=== PATIENT | male | born 1955 | race Caucasian/White ===

== ENCOUNTER 2019-12-06 21:42 | Inpatient (IN) | payer MEDICAID, SELFPAY ==
[~2019-12-06] VITALS: Ht 170.2 cm; Wt 52.0 kg
[2019-12-06 21:42] VITALS: BP_SYST 103
--- NOTE | 2019-12-06 21:46 | NUR ---
Patient to ER bed 7 to gown for evaluation. Side rails up.
--- NOTE | 2019-12-06 21:48 | NUR ---
Patient BIB by BLS/EMS from [facility]. C/O nausea, vomitting and abdominal pain x today. Per reported, patient had abdominal pain, nausea and vomitting, A/O,X4, abdominal pain, pain rate 10/10, nausea, right upper arm PICC line, G-tube, place patient on alarm security or surveillance monitor and pulse ox. Hx Colon cancer stage III, colostomy, G-tube, ileostomy, colon resection.
--- NOTE | 2019-12-06 21:50 | NUR ---
ER Dr. Wagner at bedside examining patient.
[2019-12-06] MEDS ORDERED: NACL 0.9% 1,000 ML IV ONE ×2 (21:53→23:45)
[2019-12-06 22:09] LABS: BASOPHILS % (AUTO) 0.1 % (0.0-2.0); EOSINOPHILS % (AUTO) 0.1 % (0.0-4.0); HEMATOCRIT 35.3 % (36-54); HEMOGLOBIN 12.1 g/dL (14.0-18.0); LYMPHOCYTES # (AUTO) 0.9 K/uL (1.0-5.5); LYMPHOCYTES % (AUTO) 7.4 % (20.5-51.5); MEAN CORPUSCULAR HEMOGLOBIN 30 pg (27-31); MEAN CORPUSCULAR HGB CONC 34 % (32-36); MEAN CORPUSCULAR VOLUME 86 fL (79.0-98.0); MONOCYTES # (AUTO) 0.1 K/uL (0.0-1.0); MONOCYTES % (AUTO) 1.2 % (1.7-9.3); NEUTROPHILS # (AUTO) 11.2 K/uL (1.8-7.7); NEUTROPHILS % (AUTO) 91.2 % (40.0-70.0); PLATELET COUNT (AUTO) 389 K/uL (130-430); RED CELL DISTRIBUTION WIDTH 16.3 % (9.0-15.0); WHITE BLOOD COUNT (AUTO) 12.3 K/uL (4.8-10.8)
--- NOTE | 2019-12-06 22:10 | NUR ---
GUERRERO CATH 16F INSERTED PER MD ORDER. PT TOLERATED PROCEDURE WELL. SCANT AMOUNT OF URINE OUTPUT ONLY.
[2019-12-06] MEDS ORDERED: ONDANSETRON HCL 4 MG/2 ML VIAL IVP ONE (22:15)
[2019-12-06] MEDS ORDERED: KETOROLAC TROMETHAMINE 30 MG VIAL IVP ONE (22:15)
[2019-12-06] MEDS ORDERED: NEU300 GT (22:23)
[2019-12-06] MEDS ORDERED: ESCI10TA GT (22:23)
[2019-12-06 22:24] LABS: CALCIUM 9.1 mg/dL (8.4-11.0); CREATININE 1.14 mg/dL (0.55-1.30); POTASSIUM 5.1 mmol/L (3.5-5.1)
[2019-12-06 22:26] LABS: INR 0.9 (0.80-1.20); PROTHROMBIN TIME 9.4 SECS (9.5-12.5)
[2019-12-06 22:28] LABS: ALBUMIN 2.5 g/dL (3.4-4.8); TOTAL BILIRUBIN 0.4 mg/dL (0.0-1.0)
[2019-12-06] MEDS ORDERED: TRAZ-250 GT (22:28)
[2019-12-06] MEDS ORDERED: SENN8.6T19 GT (22:28)
[2019-12-06] MEDS ORDERED: MIDO5TAB4 GT (22:28)
[2019-12-06] MEDS ORDERED: MIRT30TA7 GT (22:28)
[2019-12-06] MEDS ORDERED: OXYIR5 GT (22:28)
[2019-12-06] MEDS ORDERED: OXYC15TA75 GT (22:28)
[2019-12-06] MEDS ORDERED: MAGN400T10 GT (22:28)
--- NOTE | 2019-12-06 22:28 | NUR ---
Medication reconciliation completed with information provided by document/facility. Any prior medication reconciliation on file was reviewed and corrected.
--- NOTE | 2019-12-06 23:30 | NUR ---
Patient resting quietly. No acute distress noted. Vital signs within normal range.
[2019-12-06] MEDS ORDERED: MORPHINE 4 MG/ML INJ. SYRINGE IVP ONE (23:45)
[2019-12-06] MEDS ORDERED: cefTRIAXone 1 GM in D5W 50 ML IV ONE (23:45)
[2019-12-06] MEDS ORDERED: VANCOMYCIN HCL 1,000 MG in NS 250 ML IV ONE (23:45)
[2019-12-07] VITALS (11 sets, daily range): BP systolic 51–131
[2019-12-07] MEDS ORDERED: cefTRIAXone 1 GM VIAL ONE (00:11)
[2019-12-07] MEDS ORDERED: VANCOMYCIN HCL 1000 MG/VIAL IV ONE (00:27)
[2019-12-07] MEDS ORDERED: ONDANSETRON HCL 4 MG/2 ML VIAL IVP PRN (02:00)
[2019-12-07] MEDS ORDERED: HYDROmorphone 1 MG INJ. 1 MG/ML AMPUL IVP PRN (02:00)
--- NOTE | 2019-12-07 02:25 | NUR ---
Swabbed MRSA as protocol and sent to lab.
[2019-12-07] MEDS ORDERED: NACL 0.9% 1,000 ML IV ONE ×2 (02:30→08:30)
--- NOTE | 2019-12-07 02:32 | NUR ---
Patient will be admitted to care of . Admitted to Tele unit. Will go to room 110B. Belongings list completed. Complete and up to date summary report printed. SBAR report to be given at bedside with opportunity for questions.
--- NOTE | 2019-12-07 02:46 | NUR ---
Blood for labwork drawn from international exchange coordinator. Patient tolerated well.
--- NOTE | 2019-12-07 02:48 | NUR ---
X-ray at bedside.
--- NOTE | 2019-12-07 02:58 | NUR ---
ADMIT NOTE Received pt from ER to the floor with a diagnosis of sepsis, dehydration, colon CA. Admission process initiated. patient oriented to pain management, safety and call light-teach back done.
[2019-12-07] MEDS ORDERED: PIPERACILLIN/TAZOBACTAM 3.375 GM/VIAL (ZOSYN) IV ONE (03:11)
[2019-12-07] MEDS ORDERED: ACETAMINOPHEN 325 MG TABLET PO PRN (04:15)
--- NOTE | 2019-12-07 04:17 | NUR ---
SPOKE TO REGARDING ELEVATED TEMPERATURE AND HEART RATE. RECEIVED NEW ORDERS FOR TYLENOL 650 MG Q 4HRS AND COVID PCR TEST. WILL CARRY OUT.
--- NOTE | 2019-12-07 04:32 | NUR ---
CONSULTATION PAGED/CALLED Reason for Consultation: SEPSIS Person Who was Notified: ZAKI Consulting Physician: [employer] Specialist Specialty: Ordering Physician: MAI
--- NOTE | 2019-12-07 04:40 | NUR ---
TRANSFER OF CARE: REPORT GIVEN TO MCKAY OCAMPO FOR CONTINUITY OF CARE. PATIENT MOVED TO ROOM 122B, ALL BELONGINGS SENT WITH PATIENT.
--- NOTE | 2019-12-07 04:45 | NUR ---
Pt arrived to Room 122B from Room 110B via bed. Pt is fully awake and alert. KIP PICC noted and both lumens are saline locked. IVF of NS is infusing well in LAC at 25ml/hr without any signs of infiltration. LLQ Colostomy and RLQ Ileostomy bags intact with scant amount of liquid brownish stool. G Tube is in place with no residual noted. Og Cath to gravity drainage noted with scant amount of pinkish urine. Call light is with pt and bed alarm is on.
--- NOTE | 2019-12-07 05:15 | NUR ---
Novel Covid-19 Nasal swab specimen collected and will be taken to the lab.
--- NOTE | 2019-12-07 05:30 | NUR ---
GT Feeding of Jevity 1.2 was started at 40ml/hr. HOB elevated 45 degrees to prevent aspiration. Pt remains fully awake and alert. Call light is with pt and bed alarm is on.
--- NOTE | 2019-12-07 05:48 | NUR ---
Temp 100.5 Tylenol 650mg given via GT.
[2019-12-07] MEDS: MORPHINE 2 MG/ML INJ. SYRINGE IVP PRN ×3 (05:49→22:18)
--- NOTE | 2019-12-07 05:49 | NUR ---
Morphine 1mg given IV for c/o 6/10 generalized body ache. Call light is with pt and bed alarm is on.
[2019-12-07] MEDS ORDERED: PIPERACILLIN/TAZO 3.375 GM in NS 50 ML IV SCH (06:00)
--- NOTE | 2019-12-07 06:48 | NUR ---
Pt s resting quietly in bed. Temp 99.4. IVF and GTF are infusing well. Call light is with pt and bed alarm is on.
--- NOTE | 2019-12-07 07:20 | NUR ---
Opening Note patient in bed resting, respirations even and unlabored, austin catheter intact and draining by gravity, colostomy on left side, ileostomy on right side, bed locked and at low position, call light within reach, fall and aspiration precautions put in place, airborne/droplet precautions put in place, will monitor patient for any changes.
--- NOTE | 2019-12-07 08:15 | NUR ---
Low Blood pressure [id number] patient was found to be alert and oriented x4, in generalized pain, BP 58/41, HR 115, oxygen 90% on room air, IV line was found to be infiltrated, PICC line in place, initially in report it was said that the PICC line was for chemo only (patient was admitted with a PICC line), Dr. White was informed that IV access was not be able to be obtained, okay to use PICC line ordered received, chest xray confirmed placement, orders received for 1L NS Bolus, 1L was given via PICC line, patient's BP during the bolus was 60/39, HR 116, O2 97% on 2L, see vital signs on interventions for subsequent readings. Received orders to transfer to ICU.
--- NOTE | 2019-12-07 10:00 | NUR ---
Patient transferred to ICU report given to Sharonda BASHIR.
--- NOTE | 2019-12-07 10:15 | NUR ---
Assumed care of patient. Patient awake and alert. Situated to room and call light. No other complaints at this time.
[2019-12-07] MEDS: NACL 0.9% 1,000 ML IV SCH ×3 (10:30→20:48)
--- NOTE | 2019-12-07 10:34 | NUR ---
Called Dr. Fuller with a consult. Dr. Lo lion trainer,spoke with Denise from the exchange
--- NOTE | 2019-12-07 10:34 | NUR ---
Armida PEÑA rounding on patient. Made aware regarding need for DVT prophylaxis.
[2019-12-07] MEDS ORDERED: NOREPINEPHRINE 4 MG/4 ML VIAL IV ONE (10:43)
[2019-12-07] MEDS: NOREPINEPHRINE BITARTRATE 8 MG in NS 242 ML IV PRN ×2 (10:45→20:49)
[2019-12-07] MEDS ORDERED: NS 500 ML IV ONE (11:00)
--- NOTE | 2019-12-07 11:26 | NUR ---
Dr. Fuller rounding on patient. New orders made.
[2019-12-07] MEDS: ALBUMIN HUMAN 25% 50 ML IV SCH ×2 (11:46→18:16)
--- NOTE | 2019-12-07 12:30 | NUR ---
Dr. White rounding on patient. New orders made.
--- NOTE | 2019-12-07 13:00 | NUR ---
Austin Catheter Removal Patient more awake. Noted urine leaking from around austin insertion site. Rechecked for placement and no drainage noted in catheter. Patient requested austin catheter removal and states he is able to use a urinal. Removed catheter and noted tip filled with red clots. Large amount of void noted on sheets. Able to have some void in urinal about 50 ml of misty urine.
[2019-12-07] MEDS ORDERED: DIATR MEGLU/DIATRIZ SOD 30 ML SOLUTION PO ONE (13:04)
--- NOTE | 2019-12-07 14:30 | NUR ---
Endorsed plan of care to primary RN.
[2019-12-07] MEDS: PIPERACILLIN/TAZO 4.5 GM in NS 100 ML IV SCH ×2 (14:31→20:48)
--- NOTE | 2019-12-07 14:35 | NUR ---
Received patient and endorsed report.
[2019-12-07] MEDS: MORPHINE 4 MG/ML INJ. SYRINGE IVP PRN ×2 (15:23→19:55)
--- NOTE | 2019-12-07 16:48 | NUR ---
Patient off unit to CT scan accompanied by RN and tech with continuous monitoring and O2.
--- NOTE | 2019-12-07 17:20 | NUR ---
Patient return from CT scan. Situated to room and call light. Patient tolerated well.
--- NOTE | 2019-12-07 19:10 | NUR ---
OPENING NOTE SBAR REPORT RECEIVED FROM LUIS F BASHIR. CARE ASSUMED. PT LAYING IN BED. PT ANO X4. PT ON 2L NC. O2 SATURATION 98%. PT HAS RUE PICC LINE RUNNING LEVOPHED @ 0.3 MCG/KG/MIN AND NS @ 200 ML/HR. RADIAL AND PEDAL PULSES NORMAL. NO EDEMA NOTED. ABDOMEN SOFT NON DISTENDED. ILEOSTOMY AND COLOSTOMY BAG IN PLACE. PT HAS G TUBE RUNNING JEVITY @ 40 CC/HR. NO RESIDUAL NOTED. PT VOIDING IN URINAL. URINE MODE. SKIN INTACT. BED LOCKED IN LOWEST POSITION. SAFETY PRECAUTIONS IN PLACE. CALL LIGHT WITHIN REACH. WILL CONTINUE TO MONITOR.
--- NOTE | 2019-12-07 19:25 | NUR ---
Endorsed patient and gave report to NOC shift nurse. Patient in bed with side rails x 3 up. Call light with in reach.
[2019-12-07] MEDS: VANCOMYCIN HCL 750 MG/NS 250 ML IV SCH (20:48)
[2019-12-08] VITALS (24 sets, daily range): BP systolic 81–142
[2019-12-08] MEDS: ALBUMIN HUMAN 25% 50 ML IV SCH
[2019-12-08] MEDS: MORPHINE 4 MG/ML INJ. SYRINGE IVP PRN ×8 (00:01→23:46)
[2019-12-08] MEDS: NACL 0.9% 1,000 ML IV SCH ×4 (02:03→18:12)
[2019-12-08] MEDS: PIPERACILLIN/TAZO 4.5 GM in NS 100 ML IV SCH ×3 (06:21→21:42)
[2019-12-08] MEDS: NOREPINEPHRINE BITARTRATE 8 MG in NS 242 ML IV PRN (06:22)
[2019-12-08] MEDS: MORPHINE 2 MG/ML INJ. SYRINGE IVP PRN (06:23)
[2019-12-08 06:29] LABS: ALBUMIN 2.1 g/dL (3.4-4.8); CALCIUM 7.5 mg/dL (8.4-11.0); CREATININE 0.93 mg/dL (0.55-1.30); POTASSIUM 3.1 mmol/L (3.5-5.1); THYROID STIMULATING HORMONE 1.34 uIu/mL (0.36-3.74); TOTAL BILIRUBIN 0.5 mg/dL (0.0-1.0)
[2019-12-08 06:59] LABS: HEMOGLOBIN 7.1 g/dL (14.0-18.0); MEAN CORPUSCULAR HEMOGLOBIN 30 pg (27-31); MEAN CORPUSCULAR HGB CONC 34 % (32-36); MEAN CORPUSCULAR VOLUME 87 fL (79.0-98.0); PLATELET COUNT (AUTO) 167 K/uL (130-430); RED CELL DISTRIBUTION WIDTH 16.1 % (9.0-15.0); WHITE BLOOD COUNT (AUTO) 19.6 K/uL (4.8-10.8)
--- NOTE | 2019-12-08 07:09 | NUR ---
Nutrition Update Angel Scale 16 noted. Pt admitted for Sepsis, Dehydration, Colon Cancer Diet: Jevity 1.2 at 40ml/hr, FWF 10ml via GT BMI: 14.4 kg/m2 RD to follow per nutrition care standards.
--- NOTE | 2019-12-08 07:30 | NUR ---
Opening Notes Pt received from Janice BASHIR using SBAR. Pt resting in bed with eyes open, bed in lowest position with call light within reach.
--- NOTE | 2019-12-08 07:40 | NUR ---
CLOSING NOTE PT LAYING IN BED. PT SLEEPING. NO SIGNS OR SYMPTOMS OF DISTRESS NOTED. SBAR REPORT GIVEN TO ONIEL BASHIR CARE ENDORSED.
[2019-12-08 07:50] LABS: HEMATOCRIT 20.8 % (36-54)
--- NOTE | 2019-12-08 08:42 | NUR ---
MD Dr. Fuller at bedside with pt
[2019-12-08] MEDS ORDERED: oxyCODONE HCL 10 MG TAB.ER.12H PO SCH (09:00)
--- NOTE | 2019-12-08 09:39 | NUR ---
New consult for Dr. Celaya. Dr. Celaya made aware.
[2019-12-08 09:40] LABS: TOTAL IRON BIND. CAPACITY 211 ug/dL (250-450)
--- NOTE | 2019-12-08 09:40 | NUR ---
MD Dr. Celaya at bedside with pt.
[2019-12-08 11:14] LABS: BAND % (MANUAL) 32 % (0-6); BASOPHILS % (MANUAL) 0 % (0-2); EOSINOPHILS % (MANUAL) 0 % (0-7); LYMPHOCYTES % (MANUAL) 3 % (20-46); MONOCYTES % (MANUAL) 2 % (0-11); WBC MORPHOLOGY TOXIC GRANULATION
--- NOTE | 2019-12-08 11:29 | NUR ---
Called Dr. Fuller and spoke to Matt with exchange.
--- NOTE | 2019-12-08 11:36 | NUR ---
HIGH ALERT NOTE: Called Dr. Fuller back at identified within the medical roster to verify physician authenticity.
--- NOTE | 2019-12-08 12:12 | NUR ---
Ostomy Change Changed pt's ileostomy and colostomy pouches, provided skin care and sure-prep applied to sites. Pt tolerated well.
[2019-12-08] MEDS: oxyCODONE HCL 5 MG TABLET GT PRN ×2 (14:22→20:25)
--- NOTE | 2019-12-08 15:15 | NUR ---
PICC PICC line dressing changed using sterile technique, pt tolerated well.
--- NOTE | 2019-12-08 15:30 | NUR ---
CHG Pt refused CHG, able to provide partial linen change
--- NOTE | 2019-12-08 16:27 | NUR ---
Wound Evaluation: Wound Consult ordered for Low Angel Score. Patient evaluated for a low Angel score of 16. Patient was awake, alert, oriented and received in a Breanna Bed with an Isoflex KATHERYN mattress with low air loss therapy initiated. Patient needs minimal assist to turn in bed. Skin assessment: 1. Sacral area: Scar tissue and blanchable red erythema from IAD, present on admission. No odor, no drainage. Surrounding tissue is erythematous. Patient is thin and bony with fragile tissue on Sacral area. Recommend: Cleanse involved area with mild soap and water. Pat dry. Apply Hydraguard moisture barrier cream to involved area. Cover site with Sacral foam dressing. Perform site care daily, and as needed for dressing soiling or dislodgment. 2. Left Heel: Blanchable redness. 3. Right Heel: Blanchable redness. Recommend: Elevate, off-load and float bilateral heels with one pillow lengthwise under each extremity at all times. Recommend: Encourage and assist patient as needed with repositioning side to side only every 2 hours with pillow support. Do not allow patient to lie flat on his back. Elevate, off-load and float bilateral heels with one pillow lengthwise under each extremity at all times. Offload pressure areas with pillows for pressure re-distribution. Perform skin care and monitor skin integrity Q shift. Hydraguard moisture barrier cream on moisture susceptible areas QID and PRN for soiling. Maintain patient on a low air-loss mattress.
--- NOTE | 2019-12-08 16:57 | NUR ---
BT INITIATION: Consent signed per pt agreeing to administration of blood. Blood has been type and crossmatched. Blood sent from blood bank. Information on unit of blood checked against patient wristband at bedside by two nurses. All information matches. Patient or responsible republican informed of potential complications associated with blood transfusion. Informed of possible transfusion reaction symptoms. Aware of need to notify nurse at once of itching, shortness of breath, flushing, feeling of impending doom, or other symptoms not previously present. Vital signs taken within 5 minutes prior to initiation of transfusion. RN will remain with patient for first 15 minutes of transfusion at which time vital signs will be re-assessed.
--- NOTE | 2019-12-08 19:25 | NUR ---
Opening Note Received report from AM nurse using SBAR approach.
--- NOTE | 2019-12-08 20:00 | NUR ---
Blood Transfusion Completed. Patient shows no signs or symptoms of adverse reactions. Patient tolerated well. Vital signs: BP: 126/57. Pulse 60, Respirations 15, Temperature 98.4.
[2019-12-08] MEDS: VANCOMYCIN HCL 750 MG/NS 250 ML IV SCH (20:49)
--- NOTE | 2019-12-08 22:28 | NUR ---
Blood Transfusion Complete Patient shows no signs or symptoms of adverse reactions. Patient tolerated well. Vital Signs: Blood pressure 139/66, Respirations 14, Pulse 60, Temperature 98.1.
--- NOTE | 2019-12-08 23:15 | NUR ---
PAGED DR. GARCIA FOR ORDERS DIALED: [phone] SPOKE TO: HARSHA
--- NOTE | 2019-12-08 23:20 | NUR ---
Patient complained of heart burn. Paged Dr. Stephens for orders.
--- NOTE | 2019-12-08 23:25 | NUR ---
MD LUISA Bowman is covering for Dr. Stephens. New orders received for patient's heart burn.
[2019-12-08] MEDS ORDERED: MAG-AL HYDROX/SIMETH 30 ML UDC PO ONE (23:30)
[2019-12-08] MEDS: PANTOPRAZOLE SODIUM 40 MG TAB PO SCH (23:45)
[2019-12-09] VITALS (24 sets, daily range): BP systolic 89–149
[2019-12-09] MEDS ORDERED: PANTOPRAZOLE SODIUM 40 MG TAB ONE (00:04)
[2019-12-09] MEDS: NOREPINEPHRINE BITARTRATE 8 MG in NS 242 ML IV PRN (02:10)
[2019-12-09] MEDS: oxyCODONE HCL 5 MG TABLET GT PRN ×3 (02:21→20:06)
[2019-12-09] MEDS: NACL 0.9% 1,000 ML IV SCH ×4 (02:27→23:01)
[2019-12-09] MEDS: MORPHINE 4 MG/ML INJ. SYRINGE IVP PRN ×8 (02:40→23:51)
--- NOTE | 2019-12-09 03:00 | NUR ---
MD Rounds Dr. White at bedside. New orders received.
--- NOTE | 2019-12-09 04:00 | NUR ---
Urine Culture Collected urine culture and sent to lab.
--- NOTE | 2019-12-09 04:19 | NUR ---
PAGE FOR CONSULT KOFI BRYANT REASON FOR CONSULT: HYDROBNEPHROSIS ORDERING PHYSICIAN: SATYA LEIGH DIALED: [phone] SPOKE TO: NO EXCHANGED,LEFT VOICEMAIL,NOTIFIED RN
[2019-12-09] MEDS: PIPERACILLIN/TAZO 4.5 GM in NS 100 ML IV SCH ×3 (06:00→21:35)
[2019-12-09 06:16] LABS: BASOPHILS % (AUTO) 0.1 % (0.0-2.0); EOSINOPHILS # (AUTO) 0.1 K/uL (0.0-0.4); EOSINOPHILS % (AUTO) 0.8 % (0.0-4.0); HEMATOCRIT 33.8 % (36-54); HEMOGLOBIN 11.5 g/dL (14.0-18.0); LYMPHOCYTES # (AUTO) 0.7 K/uL (1.0-5.5); LYMPHOCYTES % (AUTO) 5.1 % (20.5-51.5); MEAN CORPUSCULAR HEMOGLOBIN 29 pg (27-31); MEAN CORPUSCULAR HGB CONC 34 % (32-36); MEAN CORPUSCULAR VOLUME 86 fL (79.0-98.0); MONOCYTES # (AUTO) 0.3 K/uL (0.0-1.0); MONOCYTES % (AUTO) 1.9 % (1.7-9.3); NEUTROPHILS # (AUTO) 12.3 K/uL (1.8-7.7); NEUTROPHILS % (AUTO) 92.1 % (40.0-70.0); PLATELET COUNT (AUTO) 143 K/uL (130-430); RED BLOOD CELL COUNT(AUTO) 3.94 MIL/uL (4.2-6.2); RED CELL DISTRIBUTION WIDTH 15.7 % (9.0-15.0); WHITE BLOOD COUNT (AUTO) 13.4 K/uL (4.8-10.8)
[2019-12-09 06:39] LABS: ALBUMIN 1.9 g/dL (3.4-4.8); CALCIUM 7.7 mg/dL (8.4-11.0); CREATININE 0.74 mg/dL (0.55-1.30); TOTAL BILIRUBIN 0.5 mg/dL (0.0-1.0)
[2019-12-09 06:51] LABS: PROTHROMBIN TIME 10.2 SECS (9.5-12.5)
--- NOTE | 2019-12-09 07:15 | NUR ---
Closing Note Endorsed report to AM nurse using SBAR approach.
--- NOTE | 2019-12-09 07:27 | NUR ---
Opening Note Received plan of care via sbar from endorsing RN.
[2019-12-09 08:18] LABS: POTASSIUM 2.9 mmol/L (3.5-5.1)
--- NOTE | 2019-12-09 08:30 | NUR ---
Dr. Fuller at bedside. Discussed patient update. Provided MD with critical K 2.[address] orders.
[2019-12-09] MEDS: PANTOPRAZOLE SODIUM 40 MG TAB PO SCH (08:32)
[2019-12-09] MEDS: MUPIROCIN 2% TOPICAL OINTMENT 22 GM TP SCH ×3 (08:33→21:06)
[2019-12-09] MEDS ORDERED: POTASSIUM CHLORIDE 20 MEQ/PKT PACKET PO ONE (08:45)
--- NOTE | 2019-12-09 08:45 | NUR ---
Dr. Bueno at bedside. Provided patient update. Per MD he wants records from prior visit from [facility] for OP notes for ureteral stent placement. Also Radiology for bilateral nephrostomy tubes and removal of ureteral stent.
--- NOTE | 2019-12-09 09:37 | NUR ---
Ganesh at requested to have Dr. Bueno contact Dr. Corrales to discuss request. Paged Dr. Bueno.
--- NOTE | 2019-12-09 09:50 | NUR ---
Dr. Celaya at bedside. Provided patient update. No new orders.
[2019-12-09 09:51] LABS: BILIRUBIN,URINE NEGATIVE (NEGATIVE); BLOOD, URINE 3+ (NEGATIVE); CLARITY/URINE SL CLOUDY (CLEAR); COLOR,URINE YELLOW (YELLOW); GLUCOSE,URINE NEGATIVE (NEGATIVE); KETONES,URINE NEGATIVE (NEGATIVE); LEUKOCYTE ESTERASE ,URINE 2+ (NEGATIVE); NITRITE, URINE POSITIVE (NEGATIVE); PROTEIN URINE 2+ (NEGATIVE); UROBILINOGEN,URINE 0.2 (0.2-1.0)
[2019-12-09 10:11] LABS: BACTERIA,URINE FEW /HPF (None Seen); RBC,URINE 20-50 /HPF (0-3)
[2019-12-09 10:12] LABS: WBC,URINE >100 /HPF (0-3)
--- NOTE | 2019-12-09 10:40 | NUR ---
Spoke to patient about consent for the nephrostomy and moderate sedation. Patient advised that he does not want to make that decision without speaking to his dad. Patient requested I contact his father prior to any consent. Spoke to Ganesh at radiology who confirmed that the procedure will be a Left nephrostomy tube placement and not bilateral as Dr. Bueno had mentioned earlier. Both Dr. Bueno and Dr. Corrales had spoken. Called patient dad x 2 Yazan [place] [phone]. Left message.
--- NOTE | 2019-12-09 12:35 | NUR ---
Discussed CHG with patient. Patient advised that he is uncomfortable and dealing with generalized pain and abd pain. Refused CHG. Discussed the possibility of trying to do the CHG bath at a later time. Patient will reconsider then.
--- NOTE | 2019-12-09 17:00 | NUR ---
Discussed with patient regarding CHG bath. Patient refused a third time.
--- NOTE | 2019-12-09 19:14 | NUR ---
Closing Note Provided plan of care via sbar to receiving RN.
--- NOTE | 2019-12-09 19:28 | NUR ---
Opening Note: Report rc'vd from RN via SBAR report, all cares assumed. patient in bed with all safety precautions in place. Bed in lowest locked position, call light within reach.
--- NOTE | 2019-12-09 19:41 | NUR ---
Dietitian Recommendations *Jevity 1.2 at 50ml/hr (goal rate) with Prosource TID and 200ml free water flush Q6h -Provides: 1620 calories, 112g of protein, and 1768ml of fluids daily. -Meets: 81% and 111% of lower end of calorie and protein estimated needs, respectively. Please see Nutrition F/U for further details. LT, RD
[2019-12-09] MEDS: VANCOMYCIN HCL 750 MG/NS 250 ML IV SCH (20:06)
--- NOTE | 2019-12-09 20:07 | NUR ---
PAIN: PRN Oxycodone 10mg given for 8/10 pain, generalized body pain.
--- NOTE | 2019-12-09 20:44 | NUR ---
PAIN: Oxycodone ineffective, 4mg IVP Morphine given for 8/10 pain. Will re-assess patient, patient states "it hurts everywhere". Assisted with reposition and offered fluids PO.
--- NOTE | 2019-12-09 23:13 | NUR ---
Nsg Rounds: Patient calm lying in bed with HOB in optimal placement, denies any needs at this time. Fluids offered, new NS bag hung running at 150 ml/hr, Tube feeding replaced with new tubing. Patient denies any questions at this time. Provided patient with education on pain medications, patient lacked attentiveness to discussion. Will continue to educate throughout shift.
--- NOTE | 2019-12-09 23:45 | NUR ---
Pain: 4mg IVP Morphine given for 8/10 pain. Will re-assess patient, patient verbalized pain is constant and generalized.
[2019-12-10] VITALS (22 sets, daily range): BP systolic 91–112
--- NOTE | 2019-12-10 | NUR ---
Morphine: PRN not effective in treating patients pain. Offered fluids, urinal and assisted with repositioning.
--- NOTE | 2019-12-10 01:15 | NUR ---
Nsg Rounds: Patient awake in bed, patient verbalized pain remains constant. Educated on next dose of pain medication, patient verbalized understanding. Bed in lowest locked position all safety precautions in place. Offered fluids and urinal to patient.
--- NOTE | 2019-12-10 02:45 | NUR ---
Pain: 4mg IVP Morphine given for 8/10 pain. Will re-assess patient, patient verbalized pain is constant and generalized.
[2019-12-10] MEDS: MORPHINE 4 MG/ML INJ. SYRINGE IVP PRN ×7 (02:49→22:12)
[2019-12-10] MEDS: oxyCODONE HCL 5 MG TABLET GT PRN (04:02)
--- NOTE | 2019-12-10 04:10 | NUR ---
PAIN: PRN Oxycodone 10mg given for 8/10 pain, generalized body pain.
[2019-12-10] MEDS: NACL 0.9% 1,000 ML IV SCH ×3 (05:09→18:14)
[2019-12-10] MEDS: PIPERACILLIN/TAZO 4.5 GM in NS 100 ML IV SCH ×3 (05:10→22:12)
[2019-12-10 05:26] LABS: BASOPHILS % (AUTO) 0.5 % (0.0-2.0); EOSINOPHILS # (AUTO) 0.1 K/uL (0.0-0.4); EOSINOPHILS % (AUTO) 2.2 % (0.0-4.0); HEMATOCRIT 29.8 % (36-54); HEMOGLOBIN 10.2 g/dL (14.0-18.0); LYMPHOCYTES # (AUTO) 0.8 K/uL (1.0-5.5); LYMPHOCYTES % (AUTO) 13.2 % (20.5-51.5); MEAN CORPUSCULAR HEMOGLOBIN 29 pg (27-31); MEAN CORPUSCULAR HGB CONC 34 % (32-36); MEAN CORPUSCULAR VOLUME 85 fL (79.0-98.0); MONOCYTES # (AUTO) 0.3 K/uL (0.0-1.0); MONOCYTES % (AUTO) 4.8 % (1.7-9.3); NEUTROPHILS # (AUTO) 4.5 K/uL (1.8-7.7); NEUTROPHILS % (AUTO) 79.3 % (40.0-70.0); PLATELET COUNT (AUTO) 112 K/uL (130-430); RED BLOOD CELL COUNT(AUTO) 3.49 MIL/uL (4.2-6.2); RED CELL DISTRIBUTION WIDTH 16.1 % (9.0-15.0); WHITE BLOOD COUNT (AUTO) 5.7 K/uL (4.8-10.8)
[2019-12-10 05:49] LABS: ALBUMIN 1.5 g/dL (3.4-4.8); CALCIUM 7.2 mg/dL (8.4-11.0); CREATININE 0.59 mg/dL (0.55-1.30); TOTAL BILIRUBIN 0.5 mg/dL (0.0-1.0)
[2019-12-10 05:50] LABS: POTASSIUM 2.8 mmol/L (3.5-5.1)
--- NOTE | 2019-12-10 05:55 | NUR ---
Called: Called Dr. Mathews r/t K+ 2.8, new orders received as follows 60 MeQ K+ PO Once, 20 MeQ K-Saud Once, order read back and confirmed.
--- NOTE | 2019-12-10 05:57 | NUR ---
HIGH ALERT NOTE: Called Dr. Mathews back identified within the medical roster to verify physician authenticity. New orders received, r/t K+ 2.8, new orders received as follows 60 MeQ K+ PO Once, 20 MeQ K-Saud Once, order read back and confirmed.
[2019-12-10] MEDS ORDERED: KCL 20 mEq in 100 mL (PREMIX) 100 ML IV ONE ×2 (06:00→06:51)
[2019-12-10] MEDS ORDERED: POTASSIUM CHLORIDE 20 MEQ TAB.PRT.SR PO ONE ×2 (06:00→08:00)
[2019-12-10] MEDS: POTASSIUM CHLORIDE 20 MEQ/PKT PACKET PO ONE ×2 (06:48→07:30)
[2019-12-10] MEDS ORDERED: POTASSIUM CHLORIDE 20 MEQ/PKT PACKET ONE (06:51)
--- NOTE | 2019-12-10 06:58 | NUR ---
Closing Note Endorsed report to AM nurse using SBAR approach.
--- NOTE | 2019-12-10 08:00 | NUR ---
Dr. Fuller at bedside. Reported Potassium and provided patient update. MD to place orders. I did discuss that the potassium was supplemented via 20 meq IV and 60 meq PO.
--- NOTE | 2019-12-10 08:30 | NUR ---
Dr. Simms at bedside. Provide patient update and discussed nephrostomy. Dr. Simms had some reservation on the procedure and will discuss with Dr. Bueno.
--- NOTE | 2019-12-10 08:45 | NUR ---
Dr. Bueno at bedside. Provide patient update and discuss Dr. Simms's request to discuss the nephrostomy. Dr. Bueno will contact Dr. Simms. No new orders.
[2019-12-10] MEDS: PANTOPRAZOLE SODIUM 40 MG TAB PO SCH (09:10)
[2019-12-10] MEDS: MUPIROCIN 2% TOPICAL OINTMENT 22 GM TP SCH ×2 (10:15→20:47)
--- NOTE | 2019-12-10 17:30 | NUR ---
Dr. Cote at bedside. Provided patient update. Per MD, we will not proceed with the nephrostomy. Patient okay to transfer in the AM if stable. MD agreed to discontinue morphine and give Dilaudid 1 mg for moderate pain and 2 mg for severe pain via IVP Q4 PRN.
[2019-12-10] MEDS ORDERED: NALOXONE HCL 0.4 MG/ML AMP (NARCAN) IVP PRN (18:45)
--- NOTE | 2019-12-10 19:21 | NUR ---
Closing Note Provided plan of care via sbar to receiving RN.
[2019-12-10] MEDS: HYDROmorphone 2 MG/ML VIAL IVP PRN ×2 (19:37→23:36)
--- NOTE | 2019-12-10 20:00 | NUR ---
AWAKE, ALERT, C/O ABDOMINAL PAIN, 10/10, DILAUDID 2 MG IVP GIVEN EARLIER. ON ROOM AIR. POX 98%. BREATH SOUNDS ESSENTIALLY CLEAR. BOWEL SOUNDS (+). ILEOSTOMY AND COLOSTOMY NOTED. GT FEEDING WITH JEVITY 1.2 AT 40 CC/HR. RESIDUAL CHECK 0. PULSES PALPABLE. SKIN W/D. COLOR SATISFACTORY. HOB UP TO COMFORT. USES URINAL TO VOID. OCCASIONAL PACED BEATS. KIP PICC LINE DRSG D/I. SIDE RAILS UP. CALL LIGHTS WITHIN REACH.
[2019-12-10] MEDS: VANCOMYCIN HCL 750 MG/NS 250 ML IV SCH (20:42)
[2019-12-11] VITALS (16 sets, daily range): BP systolic 99–116
[2019-12-11] MEDS: NACL 0.9% 1,000 ML IV SCH ×4 (01:07→20:32)
[2019-12-11] MEDS: MORPHINE 4 MG/ML INJ. SYRINGE IVP PRN ×5 (02:09→22:03)
[2019-12-11] MEDS: PIPERACILLIN/TAZO 4.5 GM in NS 100 ML IV SCH ×3 (07:24→22:03)
--- NOTE | 2019-12-11 07:30 | NUR ---
Opening Note Received bedside report from endorsing RN for continuation of care. Received patient awake and resting in bed, complaining of pain. No signs or symptoms of acute distress noted. Bed locked in lowest position, bed alarm on, and call light within reach. Fall and safety precautions in place.
[2019-12-11] MEDS: HYDROmorphone 2 MG/ML VIAL IVP PRN ×4 (08:12→20:41)
[2019-12-11] MEDS: PANTOPRAZOLE SODIUM 40 MG TAB PO SCH (08:12)
[2019-12-11] MEDS: MUPIROCIN 2% TOPICAL OINTMENT 22 GM TP SCH ×2 (08:13→20:42)
--- NOTE | 2019-12-11 09:16 | NUR ---
Dr. Fuller at bedside examining patient. New orders received.
[2019-12-11] MEDS: HYDROmorphone 1 MG INJ. 1 MG/ML AMPUL IVP PRN ×4 (10:11→23:47)
--- NOTE | 2019-12-11 10:48 | NUR ---
Dr. Celaya in to see patient. No new orders.
--- NOTE | 2019-12-11 16:05 | NUR ---
Family Update Spoke with patient's mother on the phone regarding patient status and plan of care. All questions answered and education provided.
--- NOTE | 2019-12-11 18:25 | NUR ---
Spoke with Dr. Aba White regarding urine culture results, made aware.
--- NOTE | 2019-12-11 19:02 | NUR ---
Closing Note Endorsed bedside report to oncoming RN using SBAR approach for continuation of care.
--- NOTE | 2019-12-11 19:14 | NUR ---
Closing Note Endorsed bedside report to oncoming RN using SBAR approach for continuation of care.
--- NOTE | 2019-12-11 19:30 | NUR ---
Opening note: Report received from day RN. Assuming care now.
[2019-12-11] MEDS: VANCOMYCIN HCL 750 MG/NS 250 ML IV SCH (20:40)
[2019-12-11] MEDS: oxyCODONE HCL 5 MG TABLET GT PRN (20:41)
[2019-12-12] VITALS (15 sets, daily range): BP systolic 100–118
[2019-12-12] MEDS: HYDROmorphone 2 MG/ML VIAL IVP PRN ×4 (00:41→13:48)
[2019-12-12] MEDS: MORPHINE 4 MG/ML INJ. SYRINGE IVP PRN ×5 (02:04→20:23)
[2019-12-12] MEDS: NACL 0.9% 1,000 ML IV SCH ×2 (04:05→09:43)
[2019-12-12] MEDS: HYDROmorphone 1 MG INJ. 1 MG/ML AMPUL IVP PRN ×5 (04:05→22:33)
[2019-12-12 05:58] LABS: BASOPHILS # (AUTO) 0.1 K/uL (0.0-0.2); BASOPHILS % (AUTO) 1.8 % (0.0-2.0); CALCIUM 7.1 mg/dL (8.4-11.0); CREATININE 0.51 mg/dL (0.55-1.30); EOSINOPHILS # (AUTO) 0.2 K/uL (0.0-0.4); EOSINOPHILS % (AUTO) 8.3 % (0.0-4.0); HEMATOCRIT 30.8 % (36-54); HEMOGLOBIN 10.5 g/dL (14.0-18.0); LYMPHOCYTES # (AUTO) 0.7 K/uL (1.0-5.5); LYMPHOCYTES % (AUTO) 24.6 % (20.5-51.5); MEAN CORPUSCULAR HEMOGLOBIN 29 pg (27-31); MEAN CORPUSCULAR HGB CONC 34 % (32-36); MEAN CORPUSCULAR VOLUME 86 fL (79.0-98.0); MONOCYTES # (AUTO) 0.5 K/uL (0.0-1.0); MONOCYTES % (AUTO) 17.4 % (1.7-9.3); NEUTROPHILS # (AUTO) 1.4 K/uL (1.8-7.7); NEUTROPHILS % (AUTO) 47.9 % (40.0-70.0); PLATELET COUNT (AUTO) 128 K/uL (130-430); POTASSIUM 3.3 mmol/L (3.5-5.1); RED BLOOD CELL COUNT(AUTO) 3.61 MIL/uL (4.2-6.2); RED CELL DISTRIBUTION WIDTH 15.7 % (9.0-15.0)
[2019-12-12] MEDS: PIPERACILLIN/TAZO 4.5 GM in NS 100 ML IV SCH ×3 (06:49→22:10)
--- NOTE | 2019-12-12 08:00 | NUR ---
Dr. Resendiz in to see patient. No new orders.
[2019-12-12] MEDS: MUPIROCIN 2% TOPICAL OINTMENT 22 GM TP SCH ×2 (08:29→20:33)
[2019-12-12] MEDS: PANTOPRAZOLE SODIUM 40 MG TAB PO SCH (08:29)
--- NOTE | 2019-12-12 08:42 | NUR ---
Dr. Bueno at bedside examining patient. No new orders.
[2019-12-12] MEDS ORDERED: POTASSIUM CHLORIDE 20 MEQ/PKT PACKET PO ONE (08:45)
--- NOTE | 2019-12-12 08:45 | NUR ---
Dr. Fuller at bedside examining patient. New orders received.
--- NOTE | 2019-12-12 12:10 | NUR ---
Family Update Spoke with patient's mother Vivien on the phone regarding patient status and plan of care. All questions answered and education provided.
--- NOTE | 2019-12-12 14:15 | NUR ---
Endorsement of Care Endorsed bedside report to [facility] RN using SBAR approach for continuation of care.
--- NOTE | 2019-12-12 14:23 | NUR ---
assumed care, pt in bed, awake, watching tv. no distress noted. call light in reach. Enc to call for help as needed. will monitor.
--- NOTE | 2019-12-12 15:07 | NUR ---
Notes Complain of abdominal pain 10/10pain level.medicated with morphine as ordered.patient is watching tv.no distress noted.
--- NOTE | 2019-12-12 17:09 | NUR ---
Nutrition F/U RD reviewed pt's current EMR record including diet Hx, physician notes, nursing notes, pertinent labs/meds/procedures, care trends, and care activity. Admission Dx: Sepsis, Dehydration, Colon Cancer PMHx includes Metastatic Colon Cancer St4, G-tube, and Colostomy per physician notes. Per MD Note 12/08: anemia, PNA, CAD, colostomy and ileostomy, ureteral stent placement, and severe malnutrition SARS-CoV2 Ag (Rapid) Negative 12/05 SARS-CoV2 (PCR) Negative 12/06 Current Diet Order/Nutrition Support: Jevity 1.2 at 50 ml/hr, Free Water Flush: 10 ml via GT x4 days Subjective Info: RD visit was deferred while pt was in isolation in ICU to conserve PPE. Pt's primary RN reported that pt has been tolerating TF well, no residuals, and w/ some some stool output via ileostomy. Possible plans for nephrostomy tube placement per RN report. Pt would benefit from protein supplements to better meet nutritional needs. Pertinent Medications: Reviewed Pertinent Labs: Na 137 WNL (improved), K 3.3 L BUN 8 WNL (improved), CRE 0.51 L, eGFR 176 WNL (improved), BG 135 H, ALB 1.5 L Skin Integrity Comment: Angel Score: 13 Per EMR, blanchable redness to the sacrum. Current % PO N/A, pt on EN Estimated Energy Expenditure (kcals/day) 2009-2345kcal/day (30-35kcal/kg based on IBW for sepsis, cancer) Estimated Protein Required (g/day) 101-134g/day (1.5-2g/kg based on IBW for sepsis, cancer) Estimated Fluid Required (l/day) 1.7-2.0L/day for maintenance Problem/Etiology/Signs/Symptoms Malnutrition r/t disease progression associated with St 4 colon cancer AEB BMI 14.4kg/m2. *ongoing Inadequate enteral infusion r/t increased metabolic demands AEB EN meeting <75% of estimated needs *ongoing Expected Outcomes/Goals Monitor tolerance to nutrition support w/ goal of pt meeting at least 50-75% of estimated nutritional needs, labs trending WNL, normal GI function, and skin integrity/wt maintenance Dietitian Recommendations * Recommend Jevity 1.2 at 5 0ml/hr (goal rate) with Prosource TID, Free Water Flush: 200 ml Q6h via GT Provides: 1620 kcal/day, 112 gm protein/day, and 1768 ml free water/day Meets: 81% and 111% of lower end of caloric and protein estimated needs, respectively Follow Up High Risk: F/U in 2-3 days
--- NOTE | 2019-12-12 17:16 | NUR ---
Dietitian Recommendations * Recommend Jevity 1.2 at 5 0ml/hr (goal rate) with Prosource TID, Free Water Flush: 200 ml Q6h via GT Provides: 1620 kcal/day, 112 gm protein/day, and 1768 ml free water/day Meets: 81% and 111% of lower end of caloric and protein estimated needs, respectively LP, RD Please refer to Nutrition F/U for details.
--- NOTE | 2019-12-12 18:10 | NUR ---
Notes Patient is resting with eyes closed. Breathing even and unlabored. No acute distress noted.
--- NOTE | 2019-12-12 19:30 | NUR ---
INITIAL NOTES PATIENT IS STABLE AND LAYING IN BED. NO S/S OF RESPIRATORY DISTRESS NOTED. CALL LIGHT IN REACH. PATIENT SUCCESSFULLY DEMONSTRATES USAGE OF CALL LIGHT. BED IS LOCKED, ALARMED, AND AT THE LOWEST POSITION. FALL, SAFETY, ASPIRATION, CONTACT, AND RESPIRATORY PRECAUTIONS WILL BE IN PLACE THROUGHOUT THE SHIFT. PLAN OF CARE IS DISCUSSED WITH PATIENT.
[2019-12-12] MEDS: VANCOMYCIN HCL 750 MG/NS 250 ML IV SCH (20:32)
--- NOTE | 2019-12-12 21:30 | NUR ---
EMPTIED ILEOSTOMY AND COLOSTOMY AT THIS TIME. PT TOLERATED WELL.
--- NOTE | 2019-12-12 23:30 | NUR ---
PATIENT IS STABLE AND WATCHING TV IN BED. NO S/S OF RESPIRATORY DISTRESS NOTED. CALL LIGHT IN REACH.
[2019-12-13] VITALS: BP_SYST 117
[2019-12-13] MEDS: NACL 0.9% 1,000 ML IV SCH ×2 (00:40→05:22)
[2019-12-13] MEDS: MORPHINE 4 MG/ML INJ. SYRINGE IVP PRN ×3 (00:40→08:15)
--- NOTE | 2019-12-13 01:30 | NUR ---
PATIENT IS STABLE AND SLEEPING IN BED. NO S/S OF RESPIRATORY DISTRESS NOTED. CALL LIGHT IN REACH.
[2019-12-13] MEDS: HYDROmorphone 1 MG INJ. 1 MG/ML AMPUL IVP PRN (03:18)
--- NOTE | 2019-12-13 03:30 | NUR ---
PATIENT IS WATCHING TV AND STABLE. NO S/S OF RESPIRATORY DISTRESS NOTED. CALL LIGHT IN REACH.
--- NOTE | 2019-12-13 04:37 | NUR ---
PT REQUEST PAIN MEDICATION AT THIS TIME. PRN MEDICATION GIVEN. PATIENT TOLERATED WELL. NO S/S OF RESPIRATORY DISTRESS NOTED. CALL LIGHT IN REACH.
[2019-12-13] MEDS: PIPERACILLIN/TAZO 4.5 GM in NS 100 ML IV SCH ×3 (05:23→22:27)
--- NOTE | 2019-12-13 06:19 | NUR ---
CLOSING NOTES PATIENT IS STABLE AND LAYING IN BED. NO S/S OF RESPIRATORY DISTRESS NOTED. CALL LIGHT IN REACH. BED IS LOCKED, ALARMED, AND AT THE LOWEST POSITION. FALL, SAFETY, ASPIRATION, CONTACT AND RESPIRATORY PRECAUTIONS HAVE BEEN IN PLACE THROUGHOUT THE SHIFT. WILL CONTINUE TO MONITOR UNTIL SBAR REPORT IS ENDORSED TO AM NURSE BY BEDSIDE.
[2019-12-13 06:41] LABS: EOSINOPHILS # (AUTO) 0.2 K/uL (0.0-0.4); EOSINOPHILS % (AUTO) 5.6 % (0.0-4.0); HEMATOCRIT 31.9 % (36-54); LYMPHOCYTES # (AUTO) 0.7 K/uL (1.0-5.5); LYMPHOCYTES % (AUTO) 20.5 % (20.5-51.5); MEAN CORPUSCULAR HEMOGLOBIN 29 pg (27-31); MEAN CORPUSCULAR HGB CONC 35 % (32-36); MEAN CORPUSCULAR VOLUME 85 fL (79.0-98.0); MONOCYTES # (AUTO) 0.6 K/uL (0.0-1.0); MONOCYTES % (AUTO) 19.1 % (1.7-9.3); NEUTROPHILS # (AUTO) 1.7 K/uL (1.8-7.7); NEUTROPHILS % (AUTO) 53.8 % (40.0-70.0); PLATELET COUNT (AUTO) 150 K/uL (130-430); RED BLOOD CELL COUNT(AUTO) 3.74 MIL/uL (4.2-6.2); RED CELL DISTRIBUTION WIDTH 15.4 % (9.0-15.0); WHITE BLOOD COUNT (AUTO) 3.2 K/uL (4.8-10.8)
[2019-12-13 07:08] LABS: CALCIUM 7.3 mg/dL (8.4-11.0); CREATININE 0.58 mg/dL (0.55-1.30); POTASSIUM 3.4 mmol/L (3.5-5.1)
[2019-12-13 08:00] VITALS: BP_SYST 121
[2019-12-13] MEDS: PANTOPRAZOLE SODIUM 40 MG TAB PO SCH (08:15)
--- NOTE | 2019-12-13 08:15 | NUR ---
Opening Notes/Morphine Patient is awake, alert and oriented x4. No resp distress noted. Breathing is even and unlabored. Pt is agitated. Per patient, "I dont want to live like this anymore. I just want to . I give up." Pt is c/o "constant pain", 11/05 in stomach area. Patient was given Morphine 4 mg IVP, tolerated well. PICC LINE on KIP, double lumen, flushing well, blood return noted. NS @ 150 cc/hr, infusing well at this time. All needs met. Safety and fall precautions in place. Bed in lowest position, alarm on, locked. Will continue to monitor. Addendum: 12/13/19 at 1937 by Leeanna Martinez RN Will re-evaluate patient throughout shift. Will endorse to PM nurse for further evaluation
[2019-12-13] MEDS: MUPIROCIN 2% TOPICAL OINTMENT 22 GM TP SCH ×2 (08:34→20:13)
[2019-12-13] MEDS ORDERED: POTASSIUM CHLORIDE 20 MEQ/PKT PACKET PO ONE (10:00)
[2019-12-13] MEDS: TEMAZEPAM 7.5 MG CAPSULE PO PRN ×2 (10:07→22:27)
--- NOTE | 2019-12-13 10:15 | NUR ---
Restoril 7.5 mg x insomnia/AGITATION Per patient, "I cant sleep at all. I need a sleeping pill." Obtained new orders from Dr. Cote. Restoril 7.5 mg Q12H PRN. Pt tolerated medication well. Pt continues to be agitated. Per patient, "This pill better work and you better not be tricking me into taking another medication." Nurse educated pt that the pill is for his insomnia." Will continue to monitor.
--- NOTE | 2019-12-13 10:29 | NUR ---
Notes Patient is laying in bed, asking for pain medication. Nurse educated pt that his pain med is not due yet. No resp distress noted. Breathing is even and unlabored. Will continue to monitor.
[2019-12-13] MEDS: HYDROmorphone 2 MG/ML VIAL IVP PRN ×3 (11:24→20:12)
--- NOTE | 2019-12-13 11:25 | NUR ---
Pain Patient is c/o 9/10 stomach pain, requesting pain medication. Administered Dilaudid 2 mg IVP, tolerated well. Will continue to monitor.
--- NOTE | 2019-12-13 11:41 | NUR ---
DC FLUIDS, TKO S/w Dr. Cote about pts bilateral feet swelling, obtained new orders to stop IVF and keep TKO. Noted and carried out. Educated pt to elevate lower extremities. Aware and agreed. Will continue to monitor.
[2019-12-13 12:00] VITALS: BP_SYST 115
--- NOTE | 2019-12-13 12:25 | NUR ---
Notes Patient is sleeping in bed at this time. No resp distress noted. Breathing is even and unlabored. No signs of pain at this time. Will continue to monitor.
--- NOTE | 2019-12-13 14:25 | NUR ---
Notes/Pain Patient is awake, alert and oriented x4. No resp distress. Pt is c/o 9/10 stomach pain, requesting pain medication. Administered Dilaudid 2 mg IVP, tolerated well. Collected a urine sample and sent to lab. Pt reports pain upon urination as well. Urine is dark with foul odor. All needs met. Will continue to monitor.
[2019-12-13 15:56] LABS: BILIRUBIN,URINE NEGATIVE (NEGATIVE); BLOOD, URINE 3+ (NEGATIVE); CLARITY/URINE SL CLOUDY (CLEAR); COLOR,URINE YELLOW (YELLOW); GLUCOSE,URINE NEGATIVE (NEGATIVE); KETONES,URINE NEGATIVE (NEGATIVE); LEUKOCYTE ESTERASE ,URINE 2+ (NEGATIVE); NITRITE, URINE NEGATIVE (NEGATIVE); PROTEIN URINE 1+ (NEGATIVE); UROBILINOGEN,URINE 0.2 (0.2-1.0)
[2019-12-13 16:14] LABS: BACTERIA,URINE MODERATE /HPF (None Seen); RBC,URINE 50-80 /HPF (0-3); WBC,URINE 50-80 /HPF (0-3)
[2019-12-13 16:20] VITALS: BP_SYST 108
--- NOTE | 2019-12-13 16:33 | NUR ---
Notes/MOVED TO ROOM 118A Moved pt to room 118A. No resp distress noted. Breathing is even and unlabored. Pt is c/o stomach pain, 12/05, requesting pain meds. Nurse educated pt that pain med is not due yet. Pt is agitated. Elevated both lower extremities and hung new tube feeding. All needs met. Will continue to monitor.
--- NOTE | 2019-12-13 16:45 | NUR ---
Notes Patient is awake, alert and oriented x4. Patient is agitated. Patient is c/o constant pain, 9/10, requesting pain medication. Nurse educated that pain med wasnt due at this time. Patient is sleeping at this time. No resp distress. Will continue to monitor.
[2019-12-13] MEDS: oxyCODONE HCL 5 MG TABLET GT PRN (17:16)
--- NOTE | 2019-12-13 17:16 | NUR ---
Pain Patient is c/o stomach pain, 9/10 constant pain. Administered Oxycodone 10 mg via GTUBE, tolerated well. Will continue to monitor.
--- NOTE | 2019-12-13 18:31 | NUR ---
Closing Notes Patient is asleep at this time. No resp distress noted. Breathing is even and unlabored. NO signs of pain at this time. PICC line on KIP intact, dressing clean and dry, TKO. GTUBE site intact, tube feed: Jevity 1.2 @ 40 cc/hr, infusing well at this time. Colostomy and ileosotomy intact at this time. Pt remains on contact isolation at this time. All needs met. Safety and fall precautions in place. Bed in lowest position, alarm on, locked. Will continue to monitor.
--- NOTE | 2019-12-13 19:30 | NUR ---
SUICIDE RISK ASSESSMENT PER AM NURSE, PATIENT VERBALIZED "I JUST WANT TO . I GIVE UP" IN THE MORNING. UPON ASSESSMENT AT THIS TIME, PATIENT VERBALIZES "NO I DID NOT MEAN WHAT I SAID, I JUST SAID I WANTED TO BECAUSE I WAS FRUSTRATED. OF COURSE I WANT TO LIVE". WHEN ASSESSED USING THE SUICIDE SEVERITY RISK SCALE, PATIENT DID NOT MEET ANY CRITERIA FOR ANY MORE PRECAUTIONS NECESSARY FOR SUICIDE PREVENTION. WILL CONTINUE TO MONITOR PATIENT CLOSELY FOR CHANGES IN MOOD/BEHAVIOR.
[2019-12-13 19:45] VITALS: BP_SYST 121
--- NOTE | 2019-12-13 19:45 | NUR ---
INITIAL NOTE AT INITIAL ASSESSMENT, PATIENT IS RESTING IN BED, STABLE, NO SIGNS OF RESPIRATORY DISTRESS. PATIENT VERBALIZES PAIN, PRN MEDICATION FOR PAIN WILL BE GIVEN. PLAN OF CARE FOR THE EVENING IS COMMUNICATED WITH THE PATIENT. PATIENT DEMONSTRATES CORRECT USAGE OF CALL LIGHT AT THIS TIME. BED IS LOCKED, ALARMED, AND AT THE LOWEST LEVEL. FALL SAFETY EDUCATION PROVIDED. FALL, SAFETY, ISOLATION, AND RESPIRATORY PRECAUTIONS WILL BE TAKEN THROUGHOUT THE SHIFT.
[2019-12-13] MEDS: VANCOMYCIN HCL 750 MG/NS 250 ML IV SCH (20:12)
--- NOTE | 2019-12-13 20:20 | NUR ---
PAIN NOTE PATIENT IS COMPLAINING OF PAIN, PRN MEDICATION IS GIVEN AT THIS TIME FOR PATIENTS PAIN COMPLAINT PER MD ORDERS. WILL REASSESS IF PRN MEDICATION GIVEN WAS EFFECTIVE. CALL LIGHT PLACED WITHIN REACH. BED IS LOCKED, ALARMED, AND AT THE LOWEST LEVEL.
--- NOTE | 2019-12-13 22:10 | NUR ---
MED PASS NOTE SCHEDULED MEDICATIONS GIVEN AT THIS TIME, PATIENT TOLERATED WELL. CALL LIGHT IS PLACED WITHIN REACH. BED IS LOCKED, ALARMED, AND AT THE LOWEST LEVEL.
[2019-12-14] VITALS: BP_SYST 121
--- NOTE | 2019-12-14 00:10 | NUR ---
HYGIENE CARE NOTE HYGIENE CARE IS PROVIDED AT THIS TIME, FRESH LINENS PROVIDED, AND PATIENT IS REPOSITIONED FOR COMFORT. PATIENT TOLERATED WELL. CALL LIGHT PLACED WITHIN REACH. BED IS LOCKED, ALARMED, AND AT THE LOWEST LEVEL.
[2019-12-14] MEDS: HYDROmorphone 2 MG/ML VIAL IVP PRN ×5 (00:52→22:04)
--- NOTE | 2019-12-14 01:30 | NUR ---
Andrey LOZANO. ROUNDS Lou LOZANO IS AT BEDSIDE MAKING ROUNDS, HE HAS GIVEN NEW ORDERS FOR HEPARIN AND SCDS, ORDERS READ BACK, VERIFIED, AND ENTERED FOR PHARMACY APPROVAL.
--- NOTE | 2019-12-14 03:30 | NUR ---
NOTE PATIENT IS SLEEPING, STABLE, NO SIGNS OF RESPIRATORY DISTRESS. CALL LIGHT IS WITHIN REACH. BED IS LOCKED, ALARMED, AND AT THE LOWEST LEVEL.
[2019-12-14] MEDS: PIPERACILLIN/TAZO 4.5 GM in NS 100 ML IV SCH ×3 (05:13→22:02)
--- NOTE | 2019-12-14 05:30 | NUR ---
HYGIENE CARE REFUSED HYGIENE CARE REFUSES HYGIENE CARE AT THIS TIME DESPITE EDUCATION EFFORTS. WILL CONTINUE TO ENCOURAGE. PATIENT IS REPOSITIONED FOR COMFORT. PATIENT TOLERATED WELL. CALL LIGHT PLACED WITHIN REACH. BED IS LOCKED, ALARMED, AND AT THE LOWEST LEVEL.
--- NOTE | 2019-12-14 06:30 | NUR ---
CLOSING NOTE PATIENT SLEPT WELL THROUGHOUT THE SHIFT, NO SHORTNESS OF BREATH NOTED. AT THIS TIME, PATIENT IS RESTING IN BED, STABLE, NO SIGNS OF RESPIRATORY DISTRESS. CALL LIGHT IS WITHIN REACH. BED IS LOCKED, ALARMED, AND AT THE LOWEST LEVEL. FALL, SAFETY, ISOLATION, ASPIRATION, AND RESPIRATORY PRECAUTIONS HAVE BEEN TAKEN THROUGHOUT THE SHIFT. WILL CONTINUE TO MONITOR UNTIL SHIFT REPORT IS GIVEN AT BEDSIDE TO AM NURSE.
--- NOTE | 2019-12-14 07:15 | NUR ---
Opening Note patient in bed resting, a/o x 4, no signs of distress noted, IV line is patent and infusing well, colostomy and ileostomy on abdomen intact, G Tube intact, safety measures put in place, bed locked and at low position, call light within reach, fall and aspiration precautions put in place, will monitor patient for any changes.
[2019-12-14 07:40] VITALS: BP_SYST 130
[2019-12-14] MEDS: MUPIROCIN 2% TOPICAL OINTMENT 22 GM TP SCH (09:00)
[2019-12-14] MEDS: LINEZOLID 300 ML IV SCH ×2 (09:36→20:34)
[2019-12-14] MEDS: POTASSIUM CHLORIDE 20 MEQ/PKT PACKET PO SCH (09:36)
[2019-12-14] MEDS: PANTOPRAZOLE SODIUM 40 MG TAB PO SCH (09:36)
[2019-12-14] MEDS: HEPARIN SODIUM,PORCINE 5,000 UNITS/ML VIAL SUBCUT SCH ×2 (09:38→20:36)
--- NOTE | 2019-12-14 09:39 | NUR ---
RN Rounds/Medications patient in bed resting, alert and awake, administered medications orderer per MD, patient tolerated well, no other needs at this time.
[2019-12-14] MEDS: TEMAZEPAM 7.5 MG CAPSULE PO PRN ×2 (11:13→23:42)
--- NOTE | 2019-12-14 11:45 | NUR ---
MD Rounds Dr. Fuller at bedside assessing patient, will follow up with new orders.
[2019-12-14 12:00] VITALS: BP_SYST 106
[2019-12-14] MEDS: MORPHINE 4 MG/ML INJ. SYRINGE IVP PRN (13:18)
--- NOTE | 2019-12-14 14:01 | NUR ---
RN Rounds patient in bed resting, awake and alert, no signs of distress noted, changed bedsheets for patient, administered medication ordered per MD, patient tolerated well, no other needs at this time, safety measures maintained.
[2019-12-14] MEDS: oxyCODONE HCL 5 MG TABLET GT PRN ×2 (14:59→19:06)
--- NOTE | 2019-12-14 15:44 | NUR ---
SUNSHINE Planning: received hospice eval order today. I called pt's father Jarett who does not want to made decision until speaking with dr. Cote. LISANDRA Kathi will notify the pt about the hospice eval. Per Jarett, stated he received a call from [facility] that the pt has appointment for the nephrostomy tube surgery at [facility] on Sunday. He will call back with the [facility] info: oncology and out patient surgery appointment. Per Jarett, the pt was supposed to have CM removal at [facility] but was not done, instead the pt had nephrostomy tube placement and continuing with chemo therapy treatments. Then he was transferred to [facility] with planning to xfer back and forth to [facility] for chemo therapy. Addendum: 12/14/19 at 1620 by Bull Llamas RN >> Per Jarett , he will agree with any decision the patient made: hospice vs transfer to [facility] for IR nephrostomy tube placement. Sunitha is cm at [facility] Satellite clinic/Liza /dr. Pop oncologist # [phone]. >> Per LISANDRA Armenta: new order to transfer to higher level of care for IR Urology for nephrostome tube placement . The pt agreed to have it done now. Addendum: 12/14/19 at 1655 by Bull Llamas RN >> Faxed the transfer request to [facility] attn Margot # [phone], tel # [phone]. Addendum: 12/15/19 at 1401 by Bull Llamas RN >> F/U with [facility]: the case is not accepted , the facility is not contracted with pt's insurance. In addition, dr. Manriquez/urologist spoke with dr. Cote for POC. Dr Cote would try to have the IR at [facility].
[2019-12-14 16:00] VITALS: BP_SYST 99
--- NOTE | 2019-12-14 17:30 | NUR ---
RN Rounds/Dressing placed patient in bed resting, no signs of distress noted, patient incontinent, perineal care done, foam dressing placed on sacrum area and z-guard cream placed, repositioned patient, patient tolerated well, no other needs at this time, safety measures maintained.
--- NOTE | 2019-12-14 19:30 | NUR ---
Opening Note patient in bed resting, a/o x 4, no signs of distress noted, IV line is patent and infusing well, colostomy and ileostomy on abdomen intact, G Tube intact, safety measures put in place, bed locked and at low position, call light within reach, fall and aspiration precautions put in place, will monitor patient for any changes, endorsed patient care to oncoming warehouse worker 2nd shift nurse. Addendum: 12/14/19 at 1938 by Nallely Alex RN Closing Note
[2019-12-14 20:30] VITALS: BP_SYST 97
--- NOTE | 2019-12-14 20:36 | NUR ---
MED PASS PATIENT DUE MEDICATIONS GIVEN. PATIENT ASKING FOR PAIN SHOT EXPLAINED ITS NOT TIME YET AND THAT HIS BP IS ON THE LOW SIDE 97/57. WILL HAVE TO RECHECK IT LATER BEFORE WE CAN GIVE PAIN SHOT.
--- NOTE | 2019-12-14 21:20 | NUR ---
BP/PAIN PATIENT BLOOD PRESSURE RECHECKED 98/57. INFORMED PATIENT HE CANNOT HAVE IT RIGHT NOW DUE TO HIS LOW BP. INFORMED PATIENT WILL RECHECK BP AGAIN LATER. PATIENT INSISTING ON GETTING IT AND WHEN TOLD ITS NOT SAFE TO GIVE RIGHT NOW HE BECOMES AGITATED AND YELL TO THIS NURSE SAYING " YOU'RE A BITCH". LEFT PATIENT ROOM AND TOLD PATIENT WILL COME BACK TO RECHECK BP AGAIN.
--- NOTE | 2019-12-14 22:04 | NUR ---
PAIN MGT PATIENT MEDICATED WITH DILAUDID FOR C/O ABDOMINAL PAIN 12/05. BP 103/60. CALL LIGHT WITH IN REACH.
[2019-12-15] VITALS: BP_SYST 105
[2019-12-15] MEDS: HYDROmorphone 2 MG/ML VIAL IVP PRN ×2 (02:45→06:51)
--- NOTE | 2019-12-15 02:45 | NUR ---
PAIN MGT PATIENT MEDICATED WITH DILAUDID FOR C/O ABDOMINAL PAIN 12/05. BP 102/61. CALL LIGHT WITH IN REACH.
--- NOTE | 2019-12-15 03:00 | NUR ---
PICC DRESSING KIP PICC LINE DRESSING CHANGED.
[2019-12-15] MEDS: PIPERACILLIN/TAZO 4.5 GM in NS 100 ML IV SCH ×3 (05:42→21:31)
--- NOTE | 2019-12-15 05:45 | NUR ---
AM CARE PATIENT REFUSED AM CARE.
--- NOTE | 2019-12-15 07:23 | NUR ---
Opening Note patient in bed resting, no signs of distress noted, respirations even and unlabored, safety measures put in place, bed locked and at low position, call light within reach, fall and aspiration precautions put in place, will monitor patient for any changes.
[2019-12-15 08:30] VITALS: BP_SYST 105
[2019-12-15] MEDS: PANTOPRAZOLE SODIUM 40 MG TAB PO SCH (08:33)
[2019-12-15] MEDS: POTASSIUM CHLORIDE 20 MEQ/PKT PACKET PO SCH (08:33)
[2019-12-15] MEDS: LINEZOLID 300 ML IV SCH ×2 (08:33→20:30)
[2019-12-15] MEDS: HEPARIN SODIUM,PORCINE 5,000 UNITS/ML VIAL SUBCUT SCH ×2 (08:34→20:31)
[2019-12-15] MEDS: MORPHINE 4 MG/ML INJ. SYRINGE IVP PRN ×4 (08:59→23:20)
--- NOTE | 2019-12-15 08:59 | NUR ---
RN Rounds/Medications patient in bed in stable condition, respirations even and unlabored, administered medications ordered per MD, patient tolerated well, safety measures maintained.
--- NOTE | 2019-12-15 10:28 | NUR ---
RN Rounds/Dressing change patient in bed resting, incontinence care done, foam dressing changed on sacral area, z-guard cream applied, patient tolerated well, no other needs at this time, safety measures maintained.
[2019-12-15] MEDS: oxyCODONE HCL 5 MG TABLET GT PRN (11:53)
--- NOTE | 2019-12-15 12:00 | NUR ---
RN Rounds patient in bed laying down, respirations even and unlabored, administered medication as ordered per MD, patient tolerated well, safety precautions maintained.
[2019-12-15 12:16] VITALS: BP_SYST 101
--- NOTE | 2019-12-15 13:23 | NUR ---
Nutrition F/U RD reviewed pt's current EMR record including diet Hx, physician notes, nursing notes, pertinent labs/meds/procedures, care trends, and care activity. Admission Dx: Sepsis, Dehydration, Colon Cancer PMHx includes Metastatic Colon Cancer St4 w/ distant metastasis, G-tube, and Colostomy per physician notes. Per MD Note 12/08: anemia, PNA, CAD, colostomy and ileostomy, ureteral stent placement, and severe malnutrition SARS-CoV2 Ag (Rapid) Negative 12/05 SARS-CoV2 (PCR) Negative 12/06 Current Diet Order/Nutrition Support: Clear liquid diet x 1 day Subjective Info: Pt is in isolation room and RD visit has been deferred d/t lack of PPE. RD s/w pt's primary RN Nallely who reported that EN is still infusing and it has been endorsed by nocturnal RN that pt now has a clear liquid diet order as well. Per EMR review, diet order is only active for clear liquid diet and EN order has been completed/discontinued. RD advised RN to clarify w/ MD re: nutrition support vs diet order vs both. Pertinent Medications: Heparin, KCl Packet, Protonix, Piperacillin/tazobactam Pertinent Labs: Na 138 WNL (improved), K 3.4 L, BUN 7L, CRE 0.58 L, BG 133 H Skin Integrity Comment: Angel Score: 15. Please see Dozer Operator note 12/07. No pressure injury Current % PO Poor on Clear liquid Estimated Energy Expenditure (kcals/day) 2009-2345kcal/day (30-35kcal/kg based on IBW for sepsis, cancer) Estimated Protein Required (g/day) 101-134g/day (1.5-2g/kg based on IBW for sepsis, cancer) Estimated Fluid Required (l/day) 1.7-2.0L/day for maintenance Problem/Etiology/Signs/Symptoms Malnutrition r/t disease progression associated with St 4 colon cancer AEB BMI 14.4kg/m2. *ongoing Inadequate enteral infusion r/t increased metabolic demands AEB EN meeting <75% of estimated needs *ongoing Expected Outcomes/Goals Monitor tolerance to nutrition support w/ goal of pt meeting at least 50-75% of estimated nutritional needs, labs trending WNL, normal GI function, and skin integrity/wt maintenance Dietitian Recommendations * Continue: Clear liquid diet as ordered by MD. * Recommend continue: Jevity 1.2 at 5 0ml/hr (goal rate) with Prosource TID, Free Water Flush: 200 ml Q6h via GT Provides: 1620 kcal/day, 112 gm protein/day, and 1768 ml free water/day Meets: 81% and 111% of lower end of caloric and protein estimated needs, respectively Follow Up High Risk: F/U in 2-3 days
--- NOTE | 2019-12-15 13:29 | NUR ---
Dietitian Recommendations * Continue: Clear liquid diet as ordered by MD. * Recommend continue: Jevity 1.2 at 5 0ml/hr (goal rate) with Prosource TID, Free Water Flush: 200 ml Q6h via GT Provides: 1620 kcal/day, 112 gm protein/day, and 1768 ml free water/day Meets: 81% and 111% of lower end of caloric and protein estimated needs, respectively Please see Nutrition F/U note for details. TUNDE, RD
--- NOTE | 2019-12-15 14:20 | NUR ---
MD Rounds Dr. Cote assessed patient at bedside.
--- NOTE | 2019-12-15 16:04 | NUR ---
DC Planning: Called Urology dept /[facility] # [phone] s/w MCKAY Ferreira : The pt has schedule for Cystoscopy and stent removal with dr Ibarra on 01/01. I asked to expedite the case and to reschedule pt for tomorrow, since the pt is in pain and needed to get the procedure done stu. Per Jhon, the md wants to see pt on the schedule days and unable to reschedule. I asked for inpatient transfer, Jhon stated pt must be dc from [facility] and go directly to the [facility] ER. >> Consulted with dr. Cote, the pt is great pain and need IR at [facility] stu. S/W LISANDRA Longo and RN Nallely, have not f/u with the radiologist yet. >> Consulted with dr. Bueno, stated pt can be dc to snf and f/u with [facility] as scheduled. >> paged dr. Montenegro to assist with the POC on the IR procedure-- dir Pallavi /austyn made aware.
[2019-12-15 16:15] VITALS: BP_SYST 100
--- NOTE | 2019-12-15 16:17 | NUR ---
IMPORTANCE CONTACT NUMBERS: [facility] Urology dept/dr. Ibarra 's office # [phone]. Appointment for Cystoscopy and stent removal on 01/02/20. Sunitha/ [facility], tel [phone]. address: [address] [place] [address]. I LVM yesterday and today/ no call back. Please f/u with Sunitha for her help with transfer pt to [facility] if unable to do the IR at [facility]. Denies post acute # [phone]. Per LISANDRA Mcdonough, the pt has schedule for chemo tx today and PCP phone f/u at [facility] which he is missing them.
--- NOTE | 2019-12-15 17:46 | NUR ---
RN Rounds patient awake watching TV, respirations even and unlabored, no signs of distress noted, safety measures maintained.
--- NOTE | 2019-12-15 19:30 | NUR ---
Opening notes Received report. Patient is resting in bed, no signs of distress noted. Breathing even and unlabored on room air. PICC line patent and intact, no signs of infiltration noted. G-tube patent and intact, infusing feeding. Patient has both colostomy and ileostomy. Emptied 125 ml of liquid from both bags. Total of 250 ml. No other needs. Call light with the patient. Safety precautions in place.
--- NOTE | 2019-12-15 19:40 | NUR ---
Closing Note patient in bed resting, a/o x 4, no signs of distress noted, IV line is patent and infusing well, colostomy and ileostomy on abdomen intact, G Tube intact, safety measures put in place, bed locked and at low position, call light within reach, fall and aspiration precautions put in place, will monitor patient for any changes, endorsed patient care to oncoming restaurant shift supervisor nurse.
[2019-12-15 20:00] VITALS: BP_SYST 108
--- NOTE | 2019-12-15 20:00 | NUR ---
Dr. Bueno rounds Seen and examined patient. informed RN that nephrostomy catheters will not be placed here and patient can be discharged back to SNF from his standpoint. Patient will follow up as outpatient for nephrostomy.
--- NOTE | 2019-12-15 20:30 | NUR ---
Medications given. Educated the action and side effects of Heparin. Patient verbalized understanding and tolerated well. Patient requesting sleeping pill. Will administer at later time as patient has previously received morphine. Patient verbalized understanding. No other needs. Call light with the patient. Safety precautions in place.
[2019-12-15] MEDS: TEMAZEPAM 7.5 MG CAPSULE PO PRN (21:31)
--- NOTE | 2019-12-15 21:35 | NUR ---
Sleeping pill given via g-tube. No residual noted. Educated the action and side effects of medications. Patient verbalized understanding and tolerated well. No other needs. Call light with the patient. Safety precautions in place.
--- NOTE | 2019-12-15 23:20 | NUR ---
Pain Patient complaing of abd pain. PRN morphine given. Educated the action and side effects of medication. Patient verbalized understanding and tolerated well. No other needs at this time. Call light with the patient. Safety precautions in place.
[2019-12-16] VITALS: BP_SYST 111
--- NOTE | 2019-12-16 01:05 | NUR ---
RN rounds Patient resting in bed, no signs of distress noted. Breathing even and unlabored on room air. Feeding infusing well. No needs. Call light with the patient. Safety precautions in place.
[2019-12-16] MEDS: MORPHINE 4 MG/ML INJ. SYRINGE IVP PRN ×5 (03:22→20:19)
--- NOTE | 2019-12-16 03:32 | NUR ---
Pain Patient complains of abdominal pain. PRN morphine given. Educated the action and side effects of medication. Patient verbalized understanding and tolerated well. No other needs at this time. Call light with the patient. Safety precautions in place.
[2019-12-16 05:46] LABS: EOSINOPHILS # (AUTO) 0.2 K/uL (0.0-0.4); HEMOGLOBIN 11.2 g/dL (14.0-18.0); LYMPHOCYTES # (AUTO) 0.9 K/uL (1.0-5.5); MONOCYTES # (AUTO) 0.8 K/uL (0.0-1.0)
[2019-12-16 05:52] LABS: BASOPHILS % (AUTO) 0.7 % (0.0-2.0); EOSINOPHILS % (AUTO) 4.8 % (0.0-4.0); HEMATOCRIT 32.6 % (36-54); LYMPHOCYTES % (AUTO) 23.4 % (20.5-51.5); MEAN CORPUSCULAR HEMOGLOBIN 29 pg (27-31); MEAN CORPUSCULAR HGB CONC 35 % (32-36); MEAN CORPUSCULAR VOLUME 85 fL (79.0-98.0); MONOCYTES % (AUTO) 20.1 % (1.7-9.3); NEUTROPHILS # (AUTO) 1.9 K/uL (1.8-7.7); PLATELET COUNT (AUTO) 302 K/uL (130-430); RED BLOOD CELL COUNT(AUTO) 3.85 MIL/uL (4.2-6.2); RED CELL DISTRIBUTION WIDTH 16.1 % (9.0-15.0); WHITE BLOOD COUNT (AUTO) 3.8 K/uL (4.8-10.8)
[2019-12-16 05:57] LABS: ALBUMIN 1.4 g/dL (3.4-4.8); CALCIUM 7.9 mg/dL (8.4-11.0); CREATININE 0.61 mg/dL (0.55-1.30); POTASSIUM 3.3 mmol/L (3.5-5.1); TOTAL BILIRUBIN 0.4 mg/dL (0.0-1.0)
[2019-12-16] MEDS: PIPERACILLIN/TAZO 4.5 GM in NS 100 ML IV SCH ×3 (06:53→22:39)
--- NOTE | 2019-12-16 07:00 | NUR ---
Closing notes Patient resting in bed, no signs of distress noted. Breathing even and unlabored on room air. Patient requesting pain medications, SBP at this time remains in the 90s. Informed patient pain medications cannot be given with a low blood pressure. Patient is upset. All needs met throughout the shift. Call light with the patient. Safety precautions in place. Will endorse care to day shift RN.
[2019-12-16 07:48] VITALS: BP_SYST 108
--- NOTE | 2019-12-16 08:00 | NUR ---
Note Pt resting in bed watching television. GT intact and infusing GT feedings at this time. No SOB/resp distress or pain/discomfort noted at this time. Pt's tele unit intact and attached at this time. KIP PICC intact and patent infusing IVF's well. No needs noted at this time. Call light within reach.
[2019-12-16] MEDS: LINEZOLID 300 ML IV SCH ×2 (08:37→20:19)
[2019-12-16] MEDS: POTASSIUM CHLORIDE 20 MEQ/PKT PACKET PO SCH (08:37)
[2019-12-16] MEDS: PANTOPRAZOLE SODIUM 40 MG TAB PO SCH (08:37)
[2019-12-16] MEDS: HEPARIN SODIUM,PORCINE 5,000 UNITS/ML VIAL SUBCUT SCH ×2 (09:07→20:18)
--- NOTE | 2019-12-16 10:45 | NUR ---
Note Pt resting in bed - denies any needs at this time. Dr Fuller on the floor at 0750am to assess pt. Dr Bueno on the floor at 0815am to assess pt. No new orders given at this time. [facility] RN called at 0930am to speak to pt at this time. Pt watching television and GT feedings infusing well. Call light within reach.
[2019-12-16 12:14] VITALS: BP_SYST 113
--- NOTE | 2019-12-16 14:15 | NUR ---
Note Pt states pain tolerable at this time. Pt given hygiene care frequently throughout the shift. Pt denies any needs at this time. Pt's right ileostomy and left colostomy intact and draining. Call light within reach.
[2019-12-16 15:59] VITALS: BP_SYST 110
--- NOTE | 2019-12-16 16:45 | NUR ---
Note Jaymie PEÑA (Urology Clinic) at [facility] called at 1620 stating that pt has an appt on 12/22/19 at 5.30am for stent placement. At the tower that has big "H" on it on 2nd floor (inpatient lobby) [phone]. Tomorrow Norma PEÑA will be available for questions.
--- NOTE | 2019-12-16 18:40 | NUR ---
Note Pt resting in bed and denies any needs at this time. No SOB/resp distress or pain/discomfort was noted at this time. Tele unit attached and intact all shift. Pt was checked on q1' and PRN all shift for needs and care. KIP PICC intact and patent infusing IVF's. GT intact and patent infusing feedings. Left colostomy and right ileostomy intact and draining well all shift. Pt was maintained with safety precautions all shift Call light within reach. .
--- NOTE | 2019-12-16 19:30 | NUR ---
Opening notes Received report. Patient is resting in bed, no signs of distress noted. Breathing even and unlabored on room air. PICC line patent and intact, no signs of infiltration noted. G-tube patent and intact, infusing feeding. Patient has both colostomy and ileostomy. Patient requesting pain medication, will administer. No other needs. Call light with the patient. Safety precautions in place.
--- NOTE | 2019-12-16 20:20 | NUR ---
Medications given. Educated the action and side effects of Morphine. Patient verbalized understanding and tolerated well. Encouraged patient to reposition self to prevent bed sores. Patient verbalized understanding. No other needs. Call light with the patient. Safety precautions in place.
[2019-12-16 20:22] VITALS: BP_SYST 102
--- NOTE | 2019-12-16 22:30 | NUR ---
RN rounds Patient resting in bed watching TV, no signs of distress noted. Breathing even and unlabored on room air. Feeding infusing well. No needs. Call light with the patient. Safety precautions in place.
[2019-12-17] VITALS: BP_SYST 107
[2019-12-17] MEDS: MORPHINE 4 MG/ML INJ. SYRINGE IVP PRN ×6 (00:25→21:14)
[2019-12-17] MEDS: TEMAZEPAM 7.5 MG CAPSULE PO PRN (01:46)
--- NOTE | 2019-12-17 04:26 | NUR ---
Pain Patient complains of abd pain. PRN morphine given. Educated the action and side effects of medication. Patient verbalized understanding and tolerated well. No other needs at this time. Call light with the patient. Safety precautions in place.
[2019-12-17] MEDS: PIPERACILLIN/TAZO 4.5 GM in NS 100 ML IV SCH ×3 (06:03→21:20)
--- NOTE | 2019-12-17 06:57 | NUR ---
Closing notes Patient resting in bed, no signs of distress noted. Breathing even and unlabored on room air. PICC line patent and intact, no signs of infiltration noted. All needs met throughout the shift. Call light with the patient. Safety precautions in place. Will endorse care to day shift RN.
[2019-12-17 07:55] VITALS: BP_SYST 103
--- NOTE | 2019-12-17 08:00 | NUR ---
Note Pt resting in bed, denies any SOB/resp distress or pain/discomfort noted at this time. KIP PICC intact and patent. 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 GT feedings infusing well - site intact and benign at this time. Pt watching television, tele unit intact and attached at this time. Call light within reach.
--- NOTE | 2019-12-17 08:15 | NUR ---
Note Dr Bueno on the floor to assess pt and check labs/tests at this time.
[2019-12-17] MEDS: PANTOPRAZOLE SODIUM 40 MG TAB PO SCH (08:27)
[2019-12-17] MEDS: POTASSIUM CHLORIDE 20 MEQ/PKT PACKET PO SCH (08:27)
[2019-12-17] MEDS: LINEZOLID 300 ML IV SCH ×2 (08:27→21:19)
[2019-12-17] MEDS: HEPARIN SODIUM,PORCINE 5,000 UNITS/ML VIAL SUBCUT SCH ×2 (08:36→21:26)
--- NOTE | 2019-12-17 11:45 | NUR ---
Note Pt resting in bed watching television at this time. No needs noted at this time. Call light within reach.
[2019-12-17 12:26] VITALS: BP_SYST 111
--- NOTE | 2019-12-17 13:22 | NUR ---
Spoke w/ patient- he is agreeable to returning to [facility] and f/u at [facility] out patient on 12/21 for outpt stent placement, when he is medically stable. I called [facility] [phone]-and spoke to Linh, social work job titles. She is aware of appt 12/21 at [facility] and she will arrange transportation for patient to appt. Pt is scheduled for Chemotherapy Dec 29 2019 at [facility] and she will arrange for pt to be transported for the chemotherapy treatment on that day.
--- NOTE | 2019-12-17 13:45 | NUR ---
Note Pt resting in bed - no needs noted at this time. Pt watching television and denies any needs at this time. Abdominal pain tolerable at this time. Call light within reach.
--- NOTE | 2019-12-17 14:20 | NUR ---
Note Dr Cote on the floor to assess pt. Orders written and carried out.
--- NOTE | 2019-12-17 14:54 | NUR ---
Spoke w/ Sunitha at [facility]-[phone]-verified appts at [facility] and schedule for chemotherapy for patient. Spoke w/ patient concerning F/U at [facility] for chemo and urology appts-he agreed to plan for F/u at [facility]
[2019-12-17 15:43] LABS: BASOPHILS % (AUTO) 1.2 % (0.0-2.0); EOSINOPHILS # (AUTO) 0.1 K/uL (0.0-0.4); EOSINOPHILS % (AUTO) 3.6 % (0.0-4.0); HEMATOCRIT 32.2 % (36-54); HEMOGLOBIN 11.1 g/dL (14.0-18.0); LYMPHOCYTES # (AUTO) 0.9 K/uL (1.0-5.5); LYMPHOCYTES % (AUTO) 23.8 % (20.5-51.5); MEAN CORPUSCULAR HEMOGLOBIN 29 pg (27-31); MEAN CORPUSCULAR HGB CONC 34 % (32-36); MEAN CORPUSCULAR VOLUME 85 fL (79.0-98.0); MONOCYTES # (AUTO) 0.7 K/uL (0.0-1.0); MONOCYTES % (AUTO) 16.5 % (1.7-9.3); NEUTROPHILS # (AUTO) 2.2 K/uL (1.8-7.7); NEUTROPHILS % (AUTO) 54.9 % (40.0-70.0); PLATELET COUNT (AUTO) 388 K/uL (130-430); RED BLOOD CELL COUNT(AUTO) 3.78 MIL/uL (4.2-6.2); RED CELL DISTRIBUTION WIDTH 16.7 % (9.0-15.0); WHITE BLOOD COUNT (AUTO) 3.9 K/uL (4.8-10.8)
[2019-12-17 16:01] LABS: ALBUMIN 1.4 g/dL (3.4-4.8); CALCIUM 7.7 mg/dL (8.4-11.0); CREATININE 0.66 mg/dL (0.55-1.30); POTASSIUM 3.8 mmol/L (3.5-5.1); TOTAL BILIRUBIN 0.4 mg/dL (0.0-1.0)
[2019-12-17 16:16] VITALS: BP_SYST 100
--- NOTE | 2019-12-17 18:20 | NUR ---
Note Pt resting in bed watching television. Pt's abdominal pain tolerable at this time. No SOB/resp distress or pain/discomfort noted at this time. Right ileostomy and left colostomy intact and draining well all shift. Tele unit attached and intact all shift. KIP PICC intact and patent all shift. Pt was checked on q1' and PRN all shift for needs and care. Pt was maintained with safety and isolation precautions all shift. No needs noted at this time. Call light within reach. Pt has urinal within reach. GT sit benign and patent infusing feedings well all shift.
[2019-12-17 19:00] VITALS: BP_SYST 97
--- NOTE | 2019-12-17 19:15 | NUR ---
change of shift.pt.presents isolation status;contact;mrsa/nares/vre;urine.pt.presents picc line;location;rt.bicpet.intact;patent. iv fluids infusing.pt.presents g-tube intact;patent g-tube feed infusing.pt.presents colostomy:rlq/ileostomy;llq.general status stable;respiratory stable;unlabored@room air.call light/telephone w/in access of the pt.
[2019-12-17 20:00] VITALS: BP_SYST 97
--- NOTE | 2019-12-17 20:00 | NUR ---
pt.assessed.v/s assessed values b/p noted low status.pt.inquired r/e;pain medication;to review the emar med-list.picc line intact;patent iv fluids ns flush infusing.colostomy intact;patent fecal matter present.ileostomy intact;patent.pt.utilizing the urinal.i have attended to the urinal:measured/cleaned.placed w/in access of the pt.pt.repositioned.genera status stable. respiratory status stable.g-tube intact;patent g-tube feed infusing.call light/telephone placed w/in access of the pt.
--- NOTE | 2019-12-17 21:00 | NUR ---
2100pmedication administered.i have administered morphine;4mg ivp.to assess the efficacy of the pain medication per pain mgx protocol. Addendum: 12/18/19 at 0403 by Noble Osorio RN i have administered zyvox;2100p dose.
--- NOTE | 2019-12-17 22:00 | NUR ---
pt.assessed.pt,presents quiescent affect;calm,resting.i picc line intact;patent iv fluids:ns-flush infusing.colostomy intact;patent; i have attended to the colostomy:measured/cleaned.i have attended to the ileostomy:measured/cleaned.i have attended to the urinal;measured/cleaned placed w/in access of the pt. i have administered zosyn;abx;ivpb 2200p dose.general status stable.respiratory status stable;unlabored.pt.repositioned.call light/telephone placed w/in access of the pt. Addendum: 12/18/19 at 0418 by Noble Osorio RN g-tube intact;patent g-tube feed infusing.
--- NOTE | 2019-12-18 | NUR ---
pt.assessed.v/s assessed values w/in normal limits.note b/p values.no c/o pain,nausea.picc line intact;patent iv fluids ns-flush infusing. g-tube intact;patent g-tube infusing.colostomy intact;patent.i have attended to the colostomy:measured/cleaned.ileostomy assessed. i have attended to the ileostomy;measured/cleaned.pt.repositioned.general status stable.respiratory status stable.call light/ telephone placed w/in access of the pt.
[2019-12-18 00:17] VITALS: BP_SYST 101
--- NOTE | 2019-12-18 01:00 | NUR ---
pt.requEsted medication:pain.i have administERED morphine:4MG IVP.TO ASSESS THE EFFCACY OF THE PAIN MEDICATION PER PAIN MGX PROTOCOL.
[2019-12-18] MEDS: MORPHINE 4 MG/ML INJ. SYRINGE IVP PRN ×6 (01:14→21:10)
--- NOTE | 2019-12-18 02:00 | NUR ---
pt.assessed.pt.presents quiescent affect;calm,resting/picc line intact;patent ns-flush infusing.colostomy intact;patent. ileostomy intact;patent.g-tube intact;patent g-tube feed infusing.pt,repositioned.call light/telephone w/in reach of the \ pt.
--- NOTE | 2019-12-18 04:00 | NUR ---
pt.assessed.pt.presents quiescent affect;calm,resting.no c/o pain,nausea.i have attended to the urinal:measured/cleaned placed w/in access of the pt. picc line intact;patent iv fluids ns-flush infusing.g-tube intact;patent g-tube feed infusing.colostomy intact;patent.ileostomy intact;patent.pt.repositioned.general status stable.respiratory status stable;unlabored.call light/telephone placed w/in access of the pt.
[2019-12-18] MEDS: PIPERACILLIN/TAZO 4.5 GM in NS 100 ML IV SCH ×3 (05:18→22:49)
--- NOTE | 2019-12-18 05:57 | NUR ---
pt.assessed.pt.had requested medication;pain.i had administered morphine:4mg ivp.pain medication assessed for efficacy per pain mgx protocol.i have attended to the colostomy/ileostomy.measured/cleaned.i have attended to the urinal measured placed w/in access of the pt. pt.repositioned.picc line intact;patent iv fluids ns-fush infusing.i have administered zosyn;abx,ivpb o600a dose.general status stable.respiratory status stable;unlabored.call light/telephone w/in access of the pt. Addendum: 12/18/19 at 0604 by Noble Osorio RN i have weighed th pt.2/t chf hx. Addendum: 12/18/19 at 0654 by Noble Osorio RN i have weighed th pt.2/t chf hx.
--- NOTE | 2019-12-18 08:00 | NUR ---
Opening note patient resting in bed, a/ox4, denies pain, no signs of distress, ileostomy and colostomy intact, PICC line is patent and infusing well, on room air, G tube intact, was clogged, unclogged G tube and it was flushing appropriately again, new tubing and tube feeding done at this time, patient tolerating well, educated patient on plan of care and call light system, he verbalized understanding, bed in lowest position, three side rails up, bed alarm on, call light within reach, fall, isolation and aspiration precautions in place
[2019-12-18] MEDS: PANTOPRAZOLE SODIUM 40 MG TAB PO SCH (09:20)
[2019-12-18] MEDS: POTASSIUM CHLORIDE 20 MEQ/PKT PACKET PO SCH (09:21)
[2019-12-18] MEDS: HEPARIN SODIUM,PORCINE 5,000 UNITS/ML VIAL SUBCUT SCH ×2 (09:24→21:11)
[2019-12-18] MEDS: LINEZOLID 300 ML IV SCH ×2 (09:26→21:09)
--- NOTE | 2019-12-18 09:30 | NUR ---
Medication patient resting in bed, no signs of distress ,educated on PRN and scheduled medications he verbalized understanding and tolerated well, PICC line is intact and infusing well, no residual output from G tube at this time, is not clogged at this time, continuing to monitor, bed in lowest position, three side rails up, bed alarm on, call light within reach, fall, isolation and aspiration precautions in place.
[2019-12-18 12:00] VITALS: BP_SYST 96
[2019-12-18] MEDS ORDERED: ERTA1VIA IVPB (12:17)
[2019-12-18] MEDS ORDERED: LINE600T12 PO (12:17)
--- NOTE | 2019-12-18 12:27 | NUR ---
Discharge Planning: DCP faxed patient referral to [facility] ([phone]) DCP to follow up
--- NOTE | 2019-12-18 13:32 | NUR ---
Pain patient resting in bed, awake, states he has abdominal pain, educated on pain medication uses and potential side effects, he verbalized understanding, PICC line is patent and infusing well, continuing to monitor, bed in lowest position, three side rails up, bed alarm on, call light within reach, fall, aspiration and isolation precautions in place.
--- NOTE | 2019-12-18 15:32 | NUR ---
Updated patient on plan of care regarding Public Health clearance at the SNF for discharge, patient verbalized understanding at this time, continuing to monitor, following up with discharge planning. Addendum: 12/18/19 at 1840 by Dany Rajput RN Pending call from [employer] Architect Pallavi or call from [facility] regarding bed placement.
[2019-12-18 16:05] VITALS: BP_SYST 94
--- NOTE | 2019-12-18 18:38 | NUR ---
Closing note patient resting in bed, awake, no signs of distress, all needs met, will endorse report to NOC shift nurse, PICC line intact, G tube intact, colostomy and ileostomy bags intact, bed in lowest position, three side rails up, bed alarm on, call light within reach, fall and aspiration precautions in place. Addendum: 12/18/19 at 1840 by Dany Rajput RN isolation precautions in pace.
--- NOTE | 2019-12-18 19:50 | NUR ---
OPENING NOTE patient is resting in bed, alert and oriented, tolerating well on room air, no signs of distress at this time. educated certified health education specialist light system and plan of care, patient verbalized understanding. PICC site patent. patient has an ileostomy and colostomy and bags were emptied and sites secured. no other needs addressed at this time. g tube in place with jevity 1.2 at 50cc/hr running and tolerating well. fall/safety, aspiration, and contact precautions in place.
[2019-12-18 20:02] VITALS: BP_SYST 104
--- NOTE | 2019-12-18 21:10 | NUR ---
MEDICATIONS AND COLOSTOMY CARE patient is resting in bed, educated on medication uses and side effects, patient verbalized understanding and tolerated well. left colostomy bad was changed per patient request. site secured and clean. no other needs addressed at this time. fall/safety, aspiration, and isolation precautions in place.
--- NOTE | 2019-12-18 23:23 | NUR ---
ROUNDS patient is resting in bed and watching tv, no signs of distress at this time, tube feeding running and tolerating well, no other needs addressed at this time, fall/safety, aspiration and isolation precautions in place.
[2019-12-19 00:22] VITALS: BP_SYST 99
[2019-12-19] MEDS: MORPHINE 4 MG/ML INJ. SYRINGE IVP PRN ×4 (01:14→21:12)
--- NOTE | 2019-12-19 01:14 | NUR ---
PAIN MEDICATION patient complaining of pain, educated on medication use and side effects, patient verbalized understanding and tolerated well. no other needs addressed at this time, fall/safety, aspiration, isolation precautions in place.
--- NOTE | 2019-12-19 03:27 | NUR ---
PATIENT RESTING patient is resting in bed, eyes closed breathing easy and nonlabored, no signs of distress at this time, tube feeding running and tolerating well, no other needs addressed at this time, fall/safety, aspiration and isolation precautions in place.
[2019-12-19] MEDS: PIPERACILLIN/TAZO 4.5 GM in NS 100 ML IV SCH ×3 (05:16→23:08)
--- NOTE | 2019-12-19 06:46 | NUR ---
CLOSING NOTE patient is resting in bed, tolerating well on room air, no signs of distress at this time. PICC site patent. patient has an ileostomy and colostomy and bags were emptied and sites secured. no other needs addressed at this time. g tube in place with jevity 1.2 at 50cc/hr running and tolerating well. fall/safety, aspiration, and contact precautions in place. will endorse care to day shift nurse.
--- NOTE | 2019-12-19 07:45 | NUR ---
Opening Notes Patient is awake, alert and oriented x4. No resp distress noted. Breathing is even and unlabored. Pt denies any pain at this time. PICC line on KIP, dressing clean and intact. Flushing well and blood return noted. Colostomy and ileostomy bag in place at this time. GTUBE site intact, clean and dry. Tube feed: Jevity 1/2 @ 50 cc/hr, infusing well. All needs met. Call light within reach. Safety and fall precautions in place. Bed in lowest position, alarm on, locked. Will continue to monitor.
[2019-12-19 08:00] VITALS: BP_SYST 100
[2019-12-19] MEDS: POTASSIUM CHLORIDE 20 MEQ/PKT PACKET PO SCH (09:07)
[2019-12-19] MEDS: PANTOPRAZOLE SODIUM 40 MG TAB PO SCH (09:07)
[2019-12-19] MEDS: LINEZOLID 300 ML IV SCH ×2 (09:07→21:00)
[2019-12-19] MEDS: HYDROmorphone 2 MG/ML VIAL IVP PRN (09:08)
--- NOTE | 2019-12-19 09:08 | NUR ---
Dilaudid Patient is c/o generalized body pain, 11/05, requesting pain meds. Administered Dilaudid 2 mg IVP, tolerated well. Pt is sleeping at this time. Will continue to monitor.
[2019-12-19] MEDS: HEPARIN SODIUM,PORCINE 5,000 UNITS/ML VIAL SUBCUT SCH ×2 (09:10→21:03)
--- NOTE | 2019-12-19 10:25 | NUR ---
Notes Patient is laying in bed, resting and watching TV. No resp distress noted. Breathing is even and unlabored. Shows no pain at this time. Will continue to monitor.
--- NOTE | 2019-12-19 11:07 | NUR ---
Discharge Planning: DCP faced pt referral to [facility], [facility], [facility], [facility], [facility], [facility], [place], [facility], [facility], [facility], [facility], [facility] DCP to follow up Addendum: 12/19/19 at 1553 by Audrey GARCÍA DCP followed up with referrals; [place]-declined [facility]-declined no ISO beds [facility]-no response admissions gone for day [facility]-declined [facility]-declined [facility]-Reina the DON was gone and there is no admits on the weekend. [place]- per Millie the DON [facility] declined [facility]- per Radha MOON declined to many issues [place]- per Jarett decline [facility]- declined [facility]- No room ISO DCP arranged transportation with [facility] ([phone]) BLS 3:45am to [facility] 2nd floor lobby for stent placement. Addendum: 12/19/19 at 1620 by Rachel Franco RN Ambulance [facility]-they will come at 3:45 AM Thursday 12/21- patient needs to go to Interventional Radiology-2nd floor- in pt lobby at [facility]
[2019-12-19 12:00] VITALS: BP_SYST 97
--- NOTE | 2019-12-19 12:15 | NUR ---
Notes Patient is laying in bed, watching TV and eating lunch. No resp distress. Breathing is even and unlabored. Denies any pain at this time. Repositioned in bed. Will continue to monitor.
--- NOTE | 2019-12-19 13:26 | NUR ---
Morphine 4 mg IVP Patient is c/o gen body pain, 10/05, requesting pain meds. Administered Morphine 4 mg IVP, tolerated well. Will continue to monitor.
--- NOTE | 2019-12-19 14:15 | NUR ---
Notes Patient is sleeping at this time. No resp distress. Breathing is even and unlabored. Denies any pain at this time. Will continue to monitor.
[2019-12-19 16:00] VITALS: BP_SYST 96
--- NOTE | 2019-12-19 16:25 | NUR ---
Notes Patient is sleeping at this time. No resp distress. Breathing is even and unlabored. Denies any pain at this time. Will continue to monitor.
[2019-12-19] MEDS: HYDROmorphone 1 MG INJ. 1 MG/ML AMPUL IVP PRN (17:19)
--- NOTE | 2019-12-19 17:19 | NUR ---
Dilaudid 1 mg IVP Patient is c/o gen body pain, 10/05, requesting pain meds. Administered Dilaudid 1 mg IVP, tolerated well. Will continue to monitor.
--- NOTE | 2019-12-19 18:07 | NUR ---
Closing Notes Patient is awake, alert and oriented x4, watching TV. No resp distress noted. Breathing is even and unlabored. Pt denies any pain at this time. PICC line on KIP, flushing well. No signs of infiltration or irritation at this time. Colostomy and ileostomy bag in place, emptied out, loose stool. Patient is eating dinner at this time. All needs met. Safety and fall precautions in place. Bed in lowest position, alarm on, locked. Will continue to monitor.
[2019-12-19 19:50] VITALS: BP_SYST 100
--- NOTE | 2019-12-19 19:50 | NUR ---
INITIAL NOTES PATIENT IS STABLE AND LAYING IN BED. NO S/S OF RESPIRATORY DISTRESS NOTED. CALL LIGHT IN REACH. PATIENT SUCCESSFULLY DEMONSTRATES USAGE OF CALL LIGHT. BE IS LOCKED, ALARMED, AND AT THE LOWEST POSITION. FALL, SAFETY, ASPIRATION, AND RESPIRATORY PRECAUTIONS WILL BE IN PLACE THROUGHOUT THE SHIFT. PLAN OF CARE IS DISCUSSED WITH PATIENT.
--- NOTE | 2019-12-19 21:12 | NUR ---
PT REQUESTED PAIN MEDS AT THIS TIME. PRN MEDICATION GIVEN AT THIS TIME.
--- NOTE | 2019-12-19 21:54 | NUR ---
PATIENT IS STABLE AND LAYING IN BED. NO S/S OF RESPIRATORY DISTRESS NOTED. CALL LIGHT IN REACH.
--- NOTE | 2019-12-19 23:54 | NUR ---
PATIENT WAS REPOSITION FOR COMFORT. NO S/S OF RESPIRATORY DISTRESS NOTED. CALL LIGHT IN REACH.
--- NOTE | 2019-12-20 | NUR ---
RN ROUNDS PATIENT REFUSED TO ALLOW LINEN CHANGE AT THIS TIME, BECAME VERY AGITATED AND SCREAMING. ILLEOSTOMY AND COLOSTOMY BAGS DRAINED. PATIENT WILL NOT ALLOW ADDITIONAL CARE AT THIS TIME. WILL CONTINUE TO MONITOR.
[2019-12-20 01:30] VITALS: BP_SYST 94
[2019-12-20] MEDS: MORPHINE 4 MG/ML INJ. SYRINGE IVP PRN ×6 (01:32→21:56)
--- NOTE | 2019-12-20 01:32 | NUR ---
PT REQUESTED PAIN MEDS. PRN MEDICATION WILL BE GIVEN AT THIS TIME. PATIENT TOLERATED WELL. NO S/S OF RESPIRATORY DISTRESS NOTED. CALL LIGHT IN REACH. PATIENT REPOSITION FOR COMFORT.
--- NOTE | 2019-12-20 02:54 | NUR ---
PATIENT COLOSTOMY AND ILEOSTOMY WAS EMPTIED AT THIS TIME.PATIENT TOLERATED WELL. NO S/S O RESPIRATORY DISTRESS NOTED. CALL LIGHT IN REACH.
--- NOTE | 2019-12-20 04:55 | NUR ---
PATIENT IS STABLE AND SLEEPING IN BED. NO S/S OF RESPIRATORY DISTRESS NOTED. CALL LIGHT IN REACH.
--- NOTE | 2019-12-20 06:18 | NUR ---
CLOSING NOTES PATIENT IS STABLE AND LAYING IN BED. NO S/S OF RESPIRATORY DISTRESS NOTED. CALL LIGHT IN REACH. BED IS LOCKED, ALARMED, AND AT THE LOWEST POSITION. FALL, SAFETY, ASPIRATION, CONTACT, AND RESPIRATORY PRECAUTIONS HAS BEEN IN PLACE THROUGHOUT THE SHIFT. WILL CONTINUE TO MONITOR UNTIL SBAR REPORT IS ENDORSED TO AM NURSE.
--- NOTE | 2019-12-20 07:56 | NUR ---
Opening Notes Patient is awake, alert and oriented x4. No resp distress noted. Breathing is even and unlabored. Pt is c/o gen body pain, 11/05, requesting pain medication. PICC line on KIP, dressing clean and intact. Flushing well and blood return noted. Colostomy and ileostomy bag in place at this time. GTUBE site intact, clean and dry. Tube feed: Jevity / @ 50 cc/hr, infusing well. Patient was repositioned and cleaned. Patient became agitated during dressing change. Pt would like to speak with CM in regards to surgery this upcoming Sunday. Will follow up. All needs met. Call light within reach. Safety and fall precautions in place. Bed in lowest position, alarm on, locked. Will continue to monitor.
[2019-12-20 08:00] VITALS: BP_SYST 100
--- NOTE | 2019-12-20 09:08 | NUR ---
High Lift Driver Note/DCP: MIGUEL ANGEL checked sample tailor voicemail. Received call from Radha with [facility] stating "most likely can accommodate patient". Radha requested for a call back on Sunday @ 829 to discuss further (p:[phone]). Addendum: 12/20/19 at 0925 by Joseph MICHELLE MIGUEL ANGEL phoned [facility] and spoke with Norma BASHIR informing her that placement is still needed. Informed Norma of possible discharge on Sunday due to patients scheduled procedure on Sunday. Norma BASHIR will update Radha.
--- NOTE | 2019-12-20 09:45 | NUR ---
Morphine 4 mg IVP Patient is requesting pain medication, for gen body pain 11/05. Administered Morphine 4 mg IVP, tolerated well. Will continue to monitor.
[2019-12-20] MEDS: LINEZOLID 300 ML IV SCH ×2 (09:55→21:49)
[2019-12-20] MEDS: PANTOPRAZOLE SODIUM 40 MG TAB PO SCH (09:55)
[2019-12-20] MEDS: POTASSIUM CHLORIDE 20 MEQ/PKT PACKET PO SCH (09:55)
[2019-12-20] MEDS: HEPARIN SODIUM,PORCINE 5,000 UNITS/ML VIAL SUBCUT SCH (09:56)
--- NOTE | 2019-12-20 10:15 | NUR ---
Notes Patient is awake, alert and oriented x4. No resp distress noted. Breathing is even and unlabored. Pt denies any pain at this time. No needs at this time. Will continue to monitor.
[2019-12-20 12:13] VITALS: BP_SYST 96
--- NOTE | 2019-12-20 12:30 | NUR ---
Notes Patient is awake, alert and oriented x4, watching TV and eating lunch. No resp distress noted. Breathing is even and unlabored. Denies any pain at this time, will wait for pain meds. All needs met. Will continue to monitor.
--- NOTE | 2019-12-20 14:16 | NUR ---
Notes/Morphine 4 mg IVP Patient is laying in bed, resting in bed. Pt was repositioned in bed. Patient is requesting pain medication, for gen body pain 11/05. Administered Morphine 4 mg IVP, tolerated well. No resp distress noted. Breathing is even and unlabored. Will continue to monitor.
[2019-12-20 16:10] VITALS: BP_SYST 98
--- NOTE | 2019-12-20 18:06 | NUR ---
Morphine 4 mg IVP Patient is requesting pain medication, for gen body pain 11/05. Administered Morphine 4 mg IVP, tolerated well. Will continue to monitor.
--- NOTE | 2019-12-20 18:58 | NUR ---
Closing Notes Patient is awake, alert and oriented x4, watching TV. No resp distress noted. Breathing is even and unlabored. Pt denies any pain at this time. PICC line on KIP, flushing well. No signs of infiltration or irritation at this time. Colostomy and ileostomy bag in place, emptied out 550 cc, loose stool. Patient is eating dinner at this time, given tea per request. GTUBE site intact, dressing clean and dry. Tube feed: Jevity 1.2 @ 50 cc/hr, infusing well. All needs met. Safety and fall precautions in place. Bed in lowest position, alarm on, locked. Will continue to monitor.
--- NOTE | 2019-12-20 19:40 | NUR ---
OPENING NOTE PATIENT AWAKE, AOX4. RESPIRATIONS EVEN AND UNLABORED ON ROOM AIR. NO RESPIRATORY DISTRESS NOTED. PICC LINE TO RIGHT UPPER ARM WITH CIRCUMFERENCE MEASURED AT 18.5CM, DRESSING DRY AND INTACT DUE TO BE CHANGED ON 12/21. FLUSHING WELL AND BLOOD RETURN NOTED. GUBE PATENT AND INTACT, PATIENT TOLERATING TUBE FEEDING. ILLEOSTOMY NOTED TO RIGHT ABDOMEN AND COLOSTOMY NOTED TO L ABDOMEN. STOMAS PINK AND MOIST, DRAINING STOOL. OSTOMY BAGS CLEAN DRY AND INTACT. SAFETY, ASPIRATION, AND CONTACT ISOLATION PRECAUTIONS IN PLACE. BED LOCKED IN LOW POSITION, CALL LIGHT IN REACH, BED ALARM ON.
[2019-12-20 20:00] VITALS: BP_SYST 121
--- NOTE | 2019-12-20 21:55 | NUR ---
PAIN MEDIATION PATIENT COMPLAINS OF PAIN AT THIS TIME. ADMINISTERED MORPHINE 4MG IVP, PATIENT TOLERATED. WILL CONTINUE TO MONITOR.
[2019-12-21 01:11] VITALS: BP_SYST 97
[2019-12-21] MEDS: MORPHINE 4 MG/ML INJ. SYRINGE IVP PRN ×6 (02:09→23:10)
--- NOTE | 2019-12-21 06:10 | NUR ---
CLOSING NOTE PATIENT AWAKE WATCHING TV, COMPLAINING OF PAIN, MEDICATED WITH MORPHINE 4MG IVP. PATIENT TOLERATED. GTUBE PATENT AND INTACT, TOLERATING JEVITY 1.2 FEEDING AT 50ML/HR. ILLEOSTOMY AND COLOSTOMY DRAINING STOOL, STOMA PINK AND MOIST. PATIENT CONTINUED TO REFUSE LINEN CHANGES AND PERINEAL CARE THROUGHOUT SHIFT, BECAME AGITATED AND BEGAN SHOUTING DESPITE MULTIPLE ATTEMPTS TO EDUCATE ABOUT RISK OF SKIN BREAKDOWN. BED LOCKED IN LOW POSITION WITH CALL LIGHT IN REACH. PATIENT STABLE. ALL CARE NEEDS MET.
[2019-12-21 08:00] VITALS: BP_SYST 104
--- NOTE | 2019-12-21 08:00 | NUR ---
Opening Notes Patient is awake, alert and oriented x4. No resp distress noted. Breathing is even and unlabored. Pt is c/o gen body pain, 9/10, but just received pain medication. PICC line on KIP, dressing clean and intact. Flushing well and blood return noted. Colostomy and ileostomy bag in place at this time. GTUBE site intact, clean and dry. Tube feed: Jevity 1/2 @ 50 cc/hr, infusing well. Pts tube feed was leaking, soiled the bed. Patient wants to change sheets later. All needs met. Call light within reach. Safety and fall precautions in place. Bed in lowest position, alarm on, locked. Will continue to monitor.
[2019-12-21] MEDS: LINEZOLID 300 ML IV SCH ×2 (08:49→20:26)
[2019-12-21] MEDS: POTASSIUM CHLORIDE 20 MEQ/PKT PACKET PO SCH (08:49)
[2019-12-21] MEDS: PANTOPRAZOLE SODIUM 40 MG TAB PO SCH (08:49)
--- NOTE | 2019-12-21 10:24 | NUR ---
Notes Patient is awake, alert and oriented x4, watching TV. No resp distress noted. Breathing is even and unlabored. No signs of pain at this time. Will continue to monitor.
--- NOTE | 2019-12-21 11:00 | NUR ---
Morphine 4 mg IVP Patient is requesting pain medication, for gen body pain 10/05. Administered Morphine 4 mg IVP, tolerated well. Will continue to monitor.
[2019-12-21 12:10] VITALS: BP_SYST 101
--- NOTE | 2019-12-21 12:30 | NUR ---
Notes Patient is sleeping at this time. No resp distress noted. Breathing is even and unlabored. Denies any pain. Will continue to monitor.
--- NOTE | 2019-12-21 13:00 | NUR ---
Discharge Planning Patient asked if he was going to spend the night at [facility]. I was unable to confirm as it is not in the CM notes. Spoke with Qing BASHIR and Leeanna BASHIR. They are aware patient is to go to [facility] very early tomorrow, 12/22/19 03:45. Verified with Roya at [facility], , that patient will be transported at 03:45 to [facility], Interventional Radiology, 2nd floor, in-patient lobby [facility], for stent placement. Addendum: 12/21/19 at 1642 by Ashley Tran LCSW Attempted to phone radiology for any instructions as Leeanna BASHIR request. I cannot reach anyone until 8am. Procedure is 6am. Notified ED and House Sup of transfer taking place 03:45. Frozen Meat Cutter to create transfer chart.
--- NOTE | 2019-12-21 14:00 | NUR ---
Notes Patient is awake, alert and oriented x4, watching TV at this time. No resp distress noted. Breathing is even and unlabored. Pt was given cranberry hot tea per request. All needs met. Safety and fall precautions in place. Bed in lowest position, alarm on, locked. Will continue to monitor.
--- NOTE | 2019-12-21 15:05 | NUR ---
Morphine 4 mg IVP Patient is requesting pain medication, for gen body pain 11/05. Administered Morphine 4 mg IVP, tolerated well. Will continue to monitor.
[2019-12-21 16:10] VITALS: BP_SYST 103
--- NOTE | 2019-12-21 16:25 | NUR ---
Nutrition F/U RD reviewed pt's current EMR record including diet Hx, physician notes, nursing notes, pertinent labs/meds/procedures, care trends, and care activity. Admission Dx: Sepsis, Dehydration, Colon Cancer PMHx includes Metastatic Colon Cancer St4 w/ distant metastasis, G-tube, and Colostomy per physician notes. Per MD Note 12/08: anemia, PNA, CAD, colostomy and ileostomy, ureteral stent placement, and severe malnutrition SARS-CoV2 Ag (Rapid) Negative 12/05 SARS-CoV2 (PCR) Negative 12/06 Current Diet Order/Nutrition Support: Soft (low fiber/bland) x3 days + Jevity 1.2 at 50 ml/hr, Free Water Flush: 10 via GT x4 days Subjective Info: Pt is in isolation room and RD visit has been deferred d/t lack of PPE. RD called pt's primary RN 2x -- no response, and unable to locate RN at nursing station during RD rounds. Per EMR review, pt has been tolerating TF well, and also eating on average, half of PO meals. 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 Pt may benefit from increase of TF rate and addition of protein supplement for increased nutritional needs. Pertinent Labs/Medications: Reviewed Skin Integrity Comment: Angel Score: 11. 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 No pressure injury Current % PO Poor on Clear liquid Estimated Energy Expenditure (kcals/day) 2009-2345kcal/day (30-35kcal/kg based on IBW for sepsis, cancer) Estimated Protein Required (g/day) 101-134g/day (1.5-2g/kg based on IBW for sepsis, cancer) Estimated Fluid Required (l/day) 1.7-2.0L/day for maintenance Problem/Etiology/Signs/Symptoms Malnutrition r/t disease progression associated with St 4 colon cancer AEB BMI 14.4kg/m2. *ongoing Inadequate enteral infusion r/t increased metabolic demands AEB EN meeting <75% of estimated needs *ongoing Expected Outcomes/Goals Monitor tolerance to nutrition support w/ goal of pt meeting at least 50-75% of estimated nutritional needs, labs trending WNL, normal GI function, and skin integrity/wt maintenance Dietitian Recommendations * Recommend continuing soft (low fiber/bland) diet * Recommend Jevity 1.2 at 50 ml/hr (goal rate), Prosource TID, Free Water Flush: 200 ml Q6h via GT Provides: 1620 kcal/day, 112 gm protein/day, and 1768 ml free water/day Meets: 81% and 111% of lower end of caloric and protein estimated needs, respectively Follow Up High Risk: F/U in 2-3 days
--- NOTE | 2019-12-21 16:29 | NUR ---
Dietitian Recommendations * Recommend continuing soft (low fiber/bland) diet * Recommend Jevity 1.2 at 50 ml/hr (goal rate), Prosource TID, Free Water Flush: 200 ml Q6h via GT Provides: 1620 kcal/day, 112 gm protein/day, and 1768 ml free water/day Meets: 81% and 111% of lower end of caloric and protein estimated needs, respectively LP, RD Please refer to Nutrition F/U for details.
--- NOTE | 2019-12-21 18:19 | NUR ---
Closing Notes Patient is awake, alert and oriented x4, watching TV. No resp distress noted. Breathing is even and unlabored. Pt denies any pain at this time. PICC line on KIP, flushing well. No signs of infiltration or irritation at this time. Colostomy and ileostomy bag in place, emptied out 500 cc, loose stool. Patient is eating dinner at this time, given tea per request and an extra pound cake. GTUBE site intact, dressing clean and dry. Tube feed: Jevity 1.2 @ 50 cc/hr, infusing well. Pt needs to be cleaned and given new linens, but pt is refusing at this time. Per patient, "Can we change my sheets and everything else after dinner? I dont want to be in pain for dinner." Will endorse to the next nurse. All needs met. Safety and fall precautions in place. Bed in lowest position, alarm on, locked. Will continue to monitor.
--- NOTE | 2019-12-21 19:00 | NUR ---
Morphine 4 mg IVP Patient is requesting pain medication, for gen body pain 11/05. Administered Morphine 4 mg IVP, tolerated well. Will continue to monitor.
--- NOTE | 2019-12-21 19:20 | NUR ---
OPENING NOTE PATIENT AOX4. NO SIGNS OF RESPIRATORY DISTRESS NOTED. DENIES PAIN AT THIS TIME, PER PATIENT ''I HAD MY MORPHINE A WHILE AGO, I WILL CALL WHEN I NEED IT''. ON ROOM AIR, TOLERATING WELL. VITAL SIGNS TAKEN AND WILL BE RECORDED. IV SITE, PATENCY NOTED. COLOSTOMY BAG AND ILEOSTOMY BAG, ATTACHED AND SECURED, BOWEL MOVEMENT IS NOTED TO BOTH BAGS. G-TUBE FEEDING RUNNING 50ML/HR. CALL LIGHT WITHIN REACH, PATIENT WAS EDUCATED TO USE CALL LIGHT WHEN ASSISTANCE IS NEEDED. PATIENT ABLE TO VERBALIZED UNDERSTANDING. BED LOCKED AND IN LOWEST POSITION. SAFETY AND ISOLATION PRECAUTIONS IN PLACE. WILL CONTINUE TO MONITOR PATIENT
[2019-12-21 20:00] VITALS: BP_SYST 97
--- NOTE | 2019-12-21 20:26 | NUR ---
MED PASS DUE IV ANTIBIOTIC MEDICATION GIVEN AT THIS TIME. PATIENT WAS EDUCATED ON MEDICATION THAT WAS GIVEN FOR ITS PURPOSE, SIDE EFFECT AND BENEFITS. PATIENT ABLE TO VERBALIZED UNDERSTANDING. CALL LIGHT WITHIN REACH. SAFETY PRECAUTIONS IN PLACE. WILL CONTINUE TO MONITOR PATIENT.
--- NOTE | 2019-12-21 23:30 | NUR ---
OSTOMY BAGS CHANGED/ G-TUBE FEEDING STOPPED AT THIS TIME COLOSTOMY AND ILEOSTOMY BAG CHANGED AT THIS TIME. PATIENT, TOLERATED WELL. PATIENT G-TUBE FEEDING STOPPED AT THIS TIME, PATIENT SCHEDULED FOR STENT PLACEMENT AT 0600 12/22/19. PATIENT DENIES PAIN AND DISCOMFORT. CALL LIGHT WITHIN REACH. SAFETY PRECAUTIONS IN PLACE. WILL CONTINUE TO MONITOR PATIENT
[2019-12-22] VITALS: BP_SYST 98
[2019-12-22 00:56] VITALS: BP_SYST 98
--- NOTE | 2019-12-22 02:03 | NUR ---
RN ROUNDS PATIENT ASLEEP AT THIS TIME. NO SIGNS OF RESPIRATORY DISTRESS AND DISCOMFORT NOTED. BREATHING EVEN AND UNLABORED. CALL LIGHT WITHIN REACH. SAFETY PRECAUTIONS IN PLACE. WILL CONTINUE TO MONITOR PATIENT.
--- NOTE | 2019-12-22 04:12 | NUR ---
PICKED UP BY [facility] PATIENT AWAKE, AOX4. NO SIGNS OF RESPIRATORY DISTRESS AND DISCOMFORT NOTED. BREATHING EVEN AND UNLABORED. ON ROOM AIR, TOLERATING WELL. DENIES PAIN AND DISCOMFORT AT THIS TIME. GOT PICKED UP BY [facility], REPORT GIVEN TO RUPERT GOODMAN. UNIT 8. [place] [facility] [place] ST[place] PLAC[place]. PLANNED IS THAT PATIENT WILL GO BACK TO [facility] AFTER THE PROCEDURE/ PATIENT IS STABLE.
--- NOTE | 2019-12-23 12:35 | NUR ---
Discharge Planning: DCP faxed pt referral to [facility]iel[facility] Pimentel, Joanna Escobedo, Liza Flood, [facility], [place]. DCP to follow up Addendum: 12/23/19 at 1548 by Audrey Jasso DP DCP followed up with Marielena chileling Shila babcock patient can go to Rm [id number].
[2019-12-23] MEDS ORDERED: PIPERACILLIN/TAZO 3.375/DEX-IS 50 ML IV SCH (13:00)
--- NOTE | 2019-12-23 14:43 | NUR ---
Left message for Jaymie PEÑA in urology at [facility] [phone]-requested status of pt and plan to return to [facility]
--- NOTE | 2019-12-24 10:31 | NUR ---
Nutrition F/U RD reviewed pt's current EMR record including diet Hx, physician notes, nursing notes, pertinent labs/meds/procedures, care trends, and care activity. Admission Dx: Sepsis, Dehydration, Colon Cancer PMHx includes Metastatic Colon Cancer St4 w/ distant metastasis, G-tube, and Colostomy per physician notes. Per MD Note 12/08: anemia, PNA, CAD, colostomy and ileostomy, ureteral stent placement, and severe malnutrition SARS-CoV2 Ag (Rapid) Negative 12/05 SARS-CoV2 (PCR) Negative 12/06 Current Diet Order/Nutrition Support: NPO x 3 days (patient at [facility]) Subjective Info: Pt picked up by ambulance and transferred to [facility] fo bilateral nephrostomy stent placement on 12/21 per MD note. Pt currently still at [facility] and is not at [facility] as of today. Per RN note, pt was tolerating Jevity 1.2 at 50 ml/hr, 10 via GT before TF stopped on 12/20 d/t pt's transfer. Per intake record, pt w/ fair PO intake of 50-75% of meals before transfer. Noted CM left message at [facility] to request for pt's status. Will continue monitor. Pertinent Labs/Medications: Reviewed Skin Integrity Comment: Angel Score: 12. 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 No pressure injury Current % PO NPO, pt transferred to [facility] Estimated Energy Expenditure (kcals/day) 2009-2345kcal/day (30-35kcal/kg based on IBW for sepsis, cancer) Estimated Protein Required (g/day) 101-134g/day (1.5-2g/kg based on IBW for sepsis, cancer) Estimated Fluid Required (l/day) 1.7-2.0L/day for maintenance Problem/Etiology/Signs/Symptoms Malnutrition r/t disease progression associated with St 4 colon cancer AEB BMI 14.4kg/m2. *ongoing Inadequate enteral infusion r/t increased metabolic demands AEB EN meeting <75% of estimated needs *ongoing Expected Outcomes/Goals Monitor tolerance to nutrition support w/ goal of pt meeting at least 50-75% of estimated nutritional needs, labs trending WNL, normal GI function, and skin integrity/wt maintenance Dietitian Recommendations * Recommend continuing soft (low fiber/bland) diet once pt returns * Recommend Jevity 1.2 at 50 ml/hr (goal rate), Prosource TID, Free Water Flush: 200 ml Q6h via GT once pt returns Provides: 1620 kcal/day, 112 gm protein/day, and 1768 ml free water/day Meets: 81% and 111% of lower end of caloric and protein estimated needs, respectively Follow Up High Risk: F/U in 2-3 days
--- NOTE | 2019-12-24 10:38 | NUR ---
Dietitian Recommendations * Recommend continuing soft (low fiber/bland) diet once pt returns * Recommend Jevity 1.2 at 50 ml/hr (goal rate), Prosource TID, Free Water Flush: 200 ml Q6h via GT once pt returns Provides: 1620 kcal/day, 112 gm protein/day, and 1768 ml free water/day Meets: 81% and 111% of lower end of caloric and protein estimated needs, respectively Please see Nutrition F/U for details. EP,RD
--- NOTE | 2019-12-25 08:54 | NUR ---
Spoke w/ MCKAY Ramos at [facility] hospital-pt in room [id number]. Pt to be discharged today. Spoke w/ Iggy PHAM at [facility], he was given info patient is accepted at [facility] and rehab Room 243A. He will f/u with [facility].
== END 2019-12-22 11:24 | DRG 720 ==
LOC: SED 21:42 → STU 12-07 01:55 → SIC 12-07 09:50 → STU 12-12 14:08 → SMU 12-18 12:15
PROVIDERS: ADMIT Internal Medicine; ATTEND Internal Medicine
PROC: 30233N1 Transfusion of Nonautologous Red Blood Cells into Peripheral Vein, Percutaneous Approach (ICD-10-PCS; principal; 2019-12-08)
DX: A41.9 Sepsis, unspecified organism (principal); R65.21 Severe sepsis with septic shock; E43 Unspecified severe protein-calorie malnutrition; C18.9 Malignant neoplasm of colon, unspecified; G62.9 Polyneuropathy, unspecified; E87.2 Acidosis; E87.1 Hypo-osmolality and hyponatremia; I25.10 Atherosclerotic heart disease of native coronary artery without angina pectoris; I42.0 Dilated cardiomyopathy; D50.9 Iron deficiency anemia, unspecified; N13.6 Pyonephrosis; G89.4 Chronic pain syndrome; Z20.828 Contact with and (suspected) exposure to other viral communicable diseases; K27.9 Peptic ulcer, site unspecified, unspecified as acute or chronic, without hemorrhage or perforation; K29.70 Gastritis, unspecified, without bleeding; K29.80 Duodenitis without bleeding; I13.0 Hypertensive heart and chronic kidney disease with heart failure and stage 1 through stage 4 chronic kidney disease, or unspecified chronic kidney disease; I50.9 Heart failure, unspecified; N18.9 Chronic kidney disease, unspecified; Z85.038 Personal history of other malignant neoplasm of large intestine; Z51.11 Encounter for antineoplastic chemotherapy; Z79.891 Long term (current) use of opiate analgesic; Z79.899 Other long term (current) drug therapy; Z95.810 Presence of automatic (implantable) cardiac defibrillator; Z93.3 Colostomy status; I25.2 Old myocardial infarction; Z87.01 Personal history of pneumonia (recurrent); Z93.1 Gastrostomy status; Z68.1 Body mass index [BMI] 19.9 or less, adult
CPT/HCPCS: 36415; 36430; 71045; 80048; 80053; 80061; 80202-TC; 81000-TC; 82150-TC; 82378; 82728; 83540-TC; 83550-TC; 83605; 83690-TC; 83735-TC; 83880; 84443-TC; 84484; 85007; 85025; 85027; 85610-TC; 86140; 86886; 86900; 86901; 86920; 87040-TC; 87081; 87086; 87186-TC; 93005; 93306; 96361; 96365; 96368; 96375; 99291; 99292; A4371; A5061; G0378; J0696; J1170; J1644; J1885; J2020; J2270; J2405; J2543; J3370; J3480; J7030; J7040; J7050; P9021; P9046; Q9964; U0003